=== PATIENT | female | born 1955 | race Caucasian/White ===

== ENCOUNTER 2020-09-20 14:09 | Outpatient (CLI) | payer MEDICARE, SELFPAY ==
--- NOTE | ~2020-09-20 | CT_ITS ---
EXAMINATION: CT chest abdomen pelvis w con DATE: 09/20/2020 14:55 INDICATION: Unintentional weight loss TECHNIQUE: Transaxial computed tomographic images of the chest, abdomen, and pelvis were obtained aft er the administration of 100 cc of Omnipaque 350 intravenous contrast. The dose-length product (DLP) was 360.88 mGy-cm. Automated exposure control and iterative reconstruction technique were employed. COMPARISON: 01/12/2018 FINDINGS: CHEST CT: The lungs are free of acute opacities. There is no pleural effusion or pneumothorax. No pathologicall y enlarged thoracic lymph nodes are identified. The heart size is normal. Calcified coronary artery a therosclerosis is noted. There is a 7 mm nodule of the right thyroid lobe. Healed left-sided rib frac tures are noted. ABDOMEN/PELVIS CT: The liver, spleen, pancreas, gallbladder, and adrenal glands are normal. Cysts of the kidneys measure up to 1.9 cm on the right. No pathologically enlarged abdominal or pelvic lymph nodes are identified . There is no free intraperitoneal gas or evidence of bowel obstruction. There is moderate wall thick ening of the sigmoid colon. Colonic diverticulosis is present without evidence of diverticulitis. The re is severe lumbar spondylosis. IMPRESSION: 1. Wall thickening of the sigmoid colon which could reflect colitis. No definite correlate identified for weight loss. Reviewed, dictated and finalized at location A. ER OF THE LEGISLATIVE [employer]BL[employer] IMPRESSION: 1. Wall thickening of the sigmoid colon which could reflect colitis. No definit e correlate identified for weight loss.
[2020-09-20 14:49] LABS: Estimated Glomerular Filt Rate 41
== END 2020-09-20 14:10 | disposition home or self-care (01) ==
PROVIDERS: PCP Internal Medicine; Visit Provider Physician Assistant
DX: R63.4 Abnormal weight loss (principal)
CPT/HCPCS: 71260; 74177; Q9967

== ENCOUNTER 2020-09-28 14:06 | Outpatient (CLI) | payer MEDICARE, SELFPAY ==
--- NOTE | ~2020-09-28 | US_ITS ---
US thyroid INDICATION: Nontoxic thyroid goiter TECHNIQUE: Real-time sonographic images of the thyroid gland were obtained. COMPARISON: No prior studies for comparison. FINDINGS: The right thyroid lobe measures 3.7 x 1.9 x 1.4 cm. The left thyroid lobe measures 3.7 x 1 .5 x 1 cm. There is normal echotexture and echogenicity throughout the thyroid gland. In the right lo be there is a 1.2 cm cyst which is anechoic, wider than tall, smoothly marginated well without rn internship al calcifications, benign. No other discrete masses are identified. Normal vascular flow is present. IMPRESSION: 1. Benign right thyroid cyst measuring 1.2 x 1 x 0.6 cm. Reviewed, dictated and finalized at location A. ING SAW OPERATOR
== END 2020-09-28 14:07 | disposition home or self-care (01) ==
PROVIDERS: PCP Internal Medicine; Visit Provider Physician Assistant
DX: E04.1 Nontoxic single thyroid nodule (principal)
CPT/HCPCS: 76536

== ENCOUNTER 2020-10-06 09:24 | Outpatient (CLI) | payer MEDICARE, SELFPAY ==
--- NOTE | ~2020-10-06 | NM_ITS ---
EXAMINATION: NM parathyroid imaging w spect DATE: 10/06/2020 13:39 INDICATION: Endocrine disorder. Unspecified elevated calcium levels. TECHNIQUE: 20.46 mCi Tc99m sestamibi (Cardiolite) was administered by intravenous route. Anterior ibis ges of the neck were obtained at 10 minutes and 2 hours. Additional delayed SPECT images were also ob tained. COMPARISON: None. FINDINGS IMPRESSION: Normal study. No no focus of persistent activity in the area of the thyroid or mediastinum to suggest parathyroid adenoma. Reviewed, dictated and finalized at location B.
== END 2020-10-06 09:25 | disposition home or self-care (01) ==
PROVIDERS: PCP Internal Medicine; Visit Provider Physician Assistant
DX: E34.9 Endocrine disorder, unspecified (principal)
CPT/HCPCS: 78071; A9500

== ENCOUNTER 2021-09-17 17:16 | Inpatient (IN) | payer OTHER, MEDICARE, SELFPAY ==
--- NOTE | ~2021-09-17 | CT_ITS ---
EXAMINATION: CT hip RT wo con DATE: 09/17/2021 19:52 INDICATION: Right hip fracture TECHNIQUE: Computed tomography (CT) of the right hip was performed without intravenous contrast. The dose-length product (DLP) was 244.84 mGy-cm. Automated exposure control and iterative reconstruction technique were employed. COMPARISON: None FINDINGS: There is a comminuted intertrochanteric fracture right femur. Mild osteoarthritis is noted in the right hip. No additional fracture is identified. Colonic diverticulosis is present without lg dence of diverticulitis. IMPRESSION: 1. Comminuted intertrochanteric fracture of the right femur. Reviewed, dictated and finalized at location F. UE BRUSHER
--- NOTE | ~2021-09-17 | XR_ITS ---
EXAMINATION: XR hip RT 2V w AP pelvis INDICATION: Right hip pain, initial encounter TECHNIQUE: AP view the pelvis and two views of the right hip are obtained. COMPARISON: None available FINDINGS: There is an acute fracture of the proximal femur which appears to be intertrochanteric in l ocation. The femoral heads are well-seated in their acetabula. No additional fracture is identified. Phleboliths are noted in the pelvis. There is calcified atherosclerosis. IMPRESSION: 1. Right proximal femur fracture, likely intertrochanteric. Reviewed, dictated and finalized at location F. E PICKER
--- NOTE | ~2021-09-17 | XR_ITS ---
EXAMINATION: XR surgery orthopedic INDICATION: Comminuted intertrochanteric fracture of the right hip TECHNIQUE: Total fluoroscopic time was 61.9 seconds. Six fluoroscopic images are submitted for review . COMPARISON: None available FINDINGS: Fluoroscopic images demonstrate antegrade intramedullary jose and interlocking intratrochant carolyn screw fixation of the right femur. A comminuted intertrochanteric fracture of the right femur i s noted. Alignment is anatomic after orthopedic fixation. IMPRESSION: 1. Open reduction and internal fixation of a comminuted intertrochanteric fracture of the right femur . Reviewed, dictated and finalized at location F. RONMENTAL SERVICES AIDE IMPRESSION: 1. Open reduction and internal fixation of a comminuted intertrochanteric fract ure of the right femur.
[2021-09-17 17:20] VITALS: BP 150/104; PULSE 68; RESP 20; TEMP 36.4; O2SAT 100
--- NOTE | 2021-09-17 17:41 | ED.FALL ---
HPI - Fall General Chief Complaint: Fall <Marly Quijano APRN - Last Filed: 09/17/21 22:28> Stated Complaint: R hip pain s/p fall <Marly Quijano APRN - Last Filed: 09/17/21 22:28> Time Seen by Provider: 09/17/21 17:29 <Marly Quijano APRN - Last Filed: 09/17/21 22:28> Source: patient <Marly Quijano APRN - Last Filed: 09/17/21 22:28> Mode of arrival: ambulatory <Marly Quijano APRN - Last Filed: 09/17/21 22:28> Limitations: no limitations <Marly Quijano APRN - Last Filed: 09/17/21 22:28> History of Present Illness HPI Narrative: 66-year-old female was out helping her neighbor today when she fell. Patient arrived via EMS with complaints of right hip right upper leg pain. Patient was given fentanyl in route. Patient says the fentanyl took the edge off the pain but she still in a tremendous amount of pain. Patient unable to extend the leg. Patient with palpable pedal pulse. Patient denies any injuries to the right hip or right upper leg in the past. <Marly Quijano APRN - Last Filed: 09/17/21 22:28> Related Data Home Medications: Home Medications Medication Instructions Recorded Confirmed atorvastatin 40 mg PO HS 09/17/21 09/17/21 carvedilol 12.5 mg PO BID 09/17/21 09/17/21 levothyroxine 50 mcg PO DAILY 09/17/21 09/17/21 melatonin 3 mg PO HS PRN 09/17/21 09/17/21 pantoprazole 40 mg PO BID 09/17/21 09/17/21 venlafaxine 150 mg PO DAILY 09/17/21 09/17/21 <Mraly Quijano APRN - Last Filed: 09/17/21 22:28> Allergies/Adverse Reactions: Allergies Allergy/AdvReac Type Severity Reaction Status Date / Time No Known Allergies Allergy Verified 09/17/21 22:39 <Marly Quijano APRN - Last Filed: 09/17/21 22:28> Review of Systems Review of Systems: CONSTITUTIONAL: Denies fever, chills, or sweats. EYES: Denies visual changes, redness, or discharge. ENT: Denies rhinorrhea, congestion, sore throat, or otalgia. CARDIOVASCULAR: Denies chest pain, palpitations, or edema. RESPIRATORY: Denies cough or dyspnea. GASTROINTESTINAL: Denies abdominal pain, nausea, vomiting, or diarrhea. GENITOURINARY: Denies dysuria or hematuria. SKIN: Denies rash or itching. MUSCULOSKELETAL: Positive for right hip/right upper leg pain. Denies back pain or myalgia. NEUROLOGIC: Denies headache, numbness, dizziness, or weakness. PSYCHIATRIC: Denies anxiety or depression. <Marly Quijano STOCK RECEIVER - Last Filed: 09/17/21 22:28> [facility] Past Medical History Medical History: Medical History (Updated 09/18/21 @ 01:27 by Anita Pedraza DO) Alcoholism Depression Essential hypertension GERD (gastroesophageal reflux disease) Hyperlipidemia Hypothyroidism <Marly Quijano STOCK RECEIVER - Last Filed: 09/17/21 22:28> Surgical History Surgical History: Surgical History (Updated 09/18/21 @ 01:27 by Anita Pedraza DO) History of arthroscopic knee surgery Bilateral History of section X2 History of rhinoplasty History of sinus surgery Status post cataract extraction of both eyes with insertion of intraocular lens Status post open reduction with internal fixation of fracture Right ankle fracture <Marly Quijano STOCK RECEIVER - Last Filed: 09/17/21 22:28> Family History Family History: Family History (Updated 09/18/21 @ 01:29 by Anita Pedraza DO) Mother , at 90 years old CHF (congestive heart failure) Father , At 86 years old Dementia <Marly uQijano STOCK RECEIVER - Last Filed: 09/17/21 22:28> Social History Social History: Social History (Updated 09/18/21 @ 01:30 by Anita Pedraza DO) Social History: The patient lives at home with her of 30 years. Both she and her are alcoholics. She reports that she has cut down on her alcohol use to 1 shot every couple of days. Prior to that she was drinking about a 5th of alcohol a day. She does continue to smoke. She started smoking at the age of 29 and a smoked as much as a pack of cigarette
[2021-09-17] MEDS: fentaNYL CITRATE INJ (*CRX) 100 MCG/2 ML VIAL 50 MCG IV PUSH ×2 (18:02→19:31)
[2021-09-17 18:23] LABS: Basophils Absolute Auto 0.1 K/mm3 (0.0-0.1); Basophils Percent Auto 0.5 % (0.2-1.2); Eosinophils Absolute Auto 0.6 K/mm3 (0-0.3); Eosinophils Percent Auto 5.3 % (0-4.4); Hematocrit 40.5 % (37.0-47.0); Immature Granulocyte Absolute 0.03 K/mm3 (0.00-0.031); Immature Granulocyte Percent A 0.3 % (0-0.5); Lymphocytes Absolute Auto 2.51 K/mm3 (0.9-3.2); Lymphocytes Percent Auto 23.8 % (18.3-44.2); Mean Corpuscular HGB Conc 32.1 g/dl (32-36); Mean Corpuscular Hemoglobin 31.5 pg (26-34); Mean Corpuscular Volume 98.1 fl (80-100); Mean Platelet Volume 9.6 fl (7.4-10.4); Monocytes Absolute Auto 0.8 K/mm3 (0.1-0.6); Monocytes Percent Auto 7.9 % (2.6-8.5); Neutrophils Absolute Auto 6.6 K/mm3 (1.3-6.7); Neutrophils Percent Auto 62.2 % (45.5-73.1); Platelet Count Result 428 k/mm3 (150-375); Red Blood Count 4.13 M/mm3 (4.2-5.4); Red Cell Distribution Width 14.6 % (11.5-14.5); White Blood Count 10.5 K/mm3 (4.5-10.0)
--- NOTE | 2021-09-17 18:30 | PC.NURSE ---
Marly [facility] NURSE PRACTITIONER notified of patients pain level of 10. new orders received.
[2021-09-17 18:32] LABS: Prothrombin Time 12.5 Seconds (11.1-14.7)
[2021-09-17 18:33] LABS: Partial Thromboplastin Time 25.4 SECONDS (22.3-36.8)
[2021-09-17] MEDS: HYDROmorphone HCL INJ (*CRX) 1 MG/ML SYR IV PUSH ×2 (18:33→21:12)
[2021-09-17 18:34] LABS: Alanine Aminotransferase 14 U/L (4-35); Albumin Level 3.8 g/dL (3.5-5.1); Alkaline Phosphatase 140 U/L (38-126); Anion Gap 5 mmol/L (8-16); Aspartate Amino Transferase 26 U/L (14-36); Bilirubin,Total 0.3 mg/dL (0.2-1.3); Blood Urea Nitrogen 11 mg/dL (7-17); Calcium 8.7 mg/dL (8.4-10.2); Carbon Dioxide 27 mmol/L (22-30); Chloride 109 mmol/L (98-107); Estimated CRCL calculation 54 ml/min; Estimated Glomerular Filt Rate > 60; Glucose 97 mg/dL (65-110); Potassium 4.2 mmol/L (3.4-5.0); Sodium 141 mmol/L (137-145)
--- NOTE | 2021-09-17 18:40 | ECG_ITS ---
Measurements Intervals [place] Rate: 69 P: 65 ME: 134 QRS: 58 QRSD: 94 T: 57 QT: 403 QTc: 434 Interpretive Statements SINUS RHYTHM BASELINE ARTIFACT- I, II, III, AVR, AVL, AVF, V4-V6 NORMAL ECG Electronically Signed On 09-17-2021 19:06:07 EXECUTIVE ACCOUNT MANAGER by Richard Davis D.O.
[2021-09-17 18:58] VITALS: BP 142/104; PULSE 71; RESP 15; O2SAT 100
--- NOTE | 2021-09-17 19:22 | PC.NURSE ---
Patient report received from CHAS Colon. This nurse assumed care of patient at this time.
--- NOTE | 2021-09-17 19:40 | PC.NURSE ---
Patient in CT at this time.
[2021-09-17 20:00] VITALS: TEMP 36.4
[2021-09-17 21:14] VITALS: BP 139/86; PULSE 92; RESP 24; O2SAT 99
[2021-09-17 22:05] VITALS: BP 136/75; PULSE 82; RESP 20; O2SAT 98
--- NOTE | 2021-09-17 22:27 | PM.IMHP ---
H&P: HPI History of Present Illness Date/Time: 09/17/21 22:27 Chief Complaint: Right hip pain after fall Narrative: 66-year-old female with past medical history of hypertension, hyperlipidemia, hypothyroidism and GERD who presented to the ER via EMS due to right hip pain after falling. The patient was helping her neighbor shovel snow when she fell. Her pain is worse with movement and she is unable to move her leg. She is having severe pain with muscle spasms with shifting in bed. She reports that the pain is an 10/10 intensity with movement is a 4/10 in intensity at rest. The she reports that the fall happened because she slipped. She did not hit her head or lose consciousness. She has had difficulty with some hypotension in the past but she has stated that that is been several months ago and was associated with her heavy alcohol use. She reports that for the last 6 months she has cut down her alcohol use significantly in is only drinking 1 shot every couple of days. She has a longstanding history of alcohol abuse. She still smokes a half a pack of cigarettes per day. She denies any shortness of breath, cough, congestion, palpitations, chest pain, orthopnea, lower extremity swelling or paroxysmal nocturnal dyspnea. She denies a history of COPD. Activity but this is improved since she cut back on her tobacco use. She did have a 20 lb weight loss approximately a year ago. She reports that her weight is stabilized since he has started drinking some supplements and has cut back on her alcohol use. She did have an EGD due to a sensation of globus which demonstrated GERD. The symptoms have resolved since she was started on Protonix. She is vaccinated against COVID-19. Review of Systems Review of Systems: 12 systems were reviewed with pertinent positives and negatives per HPI. Except as documented in the HPI, all other systems were reviewed and are negative. [facility] Past Medical History Medical History (Updated 09/18/21 @ 01:27 by Anita Pedraza DO) Alcoholism Depression Essential hypertension GERD (gastroesophageal reflux disease) Hyperlipidemia Hypothyroidism Surgical History Surgical History (Updated 09/18/21 @ 01:27 by Anita Pedraza DO) History of arthroscopic knee surgery Bilateral History of section X2 History of rhinoplasty History of sinus surgery Status post cataract extraction of both eyes with insertion of intraocular lens Status post open reduction with internal fixation of fracture Right ankle fracture Family History Family History (Updated 09/18/21 @ 01:29 by Anita Pedraza DO) Mother , at 90 years old CHF (congestive heart failure) Father , At 86 years old Dementia Social History Social History (Updated 09/18/21 @ 01:30 by Anita Pedraza DO) Social History: The patient lives at home with her of 30 years. Both she and her are alcoholics. She reports that she has cut down on her alcohol use to 1 shot every couple of days. Prior to that she was drinking about a 5th of alcohol a day. She does continue to smoke. She started smoking at the age of 29 and a smoked as much as a pack of cigarettes per day. She is down to 0.5 packs of cigarettes per day. She uses marijuana frequently. She is retired from [employer] she worked in [employer]. She is independent in activities of daily living. Smoking packs per day: 0.5 Smoking cigarettes per day: 10.0 Years smoked: 30 Smoking pack-years: 15.00 Smoking status: Current every day smoker Tobacco type: cigarettes Alcohol intake: current Drinks per week: 3 Substance use: current Substance use type: marijuana Spiritual care concerns: No Meds Home Medications and Allergies Home Medications Medication Instructions Recorded Confirmed Type atorvastatin 40 mg PO HS 09/17/21 09/17/21 History carvedilol 12.5 mg PO BID 09/17/21 09/17/21 History levothyroxine 50 mcg PO
--- NOTE | 2021-09-17 22:30 | ADMGEN ---
This patient, Faith Benito, was admitted to Medical Room 243-. Patient/family oriented to hospital policies and general routines including ID bracelet, bed and alarms, visiting hours, pain management, procedures, bathroom and other care routines, personal items, smoking policy, room service/diet, and visiting hours. Information on how to activate the Rapid Response Team has been discussed. Patient/Family are encouraged to report perceived risks to care and to ask questions if they do not understand what they are told or what they should do.
--- NOTE | 2021-09-17 22:46 | PM.CNOR ---
Assessment and Plan Assessment and plan (1) Closed comminuted intertrochanteric fracture of femur: Onset Date: 09/17/21 Qualifiers: Encounter type: initial encounter Laterality: right Qualified Code(s): S72.141A - Displaced intertrochanteric fracture of right femur, initial encounter for closed fracture Code(s): S72.143A - Displaced intertrochanteric fracture of unspecified femur, initial encounter for closed fracture Status: Acute Assessment and Plan: New patient evaluation for chief complaint right hip fracture. History, physical exam and radiographs reviewed with the patient.Right hip IT fx. Discussed the condition, nature, etiology and course of natural history with the patient. Treatment options including surgical and nonoperative treatment were reviewed. Risks and benefits of each as well as alternatives reviewed. The patient's questions were answered. Conservative treatment ice, mechanical dvt px, pain control. Desires operative tx.. Discussed nonoperative and operative treatment options with the patient. Risks and benefits of each as well as alternatives were reviewed. All of the patient's questions were answered. The risks of surgery reviewed including but not limited to: Neurovascular damage, wound complication, infection, blood clot, pulmonary embolus, stroke, myocardial infarction, and anesthetic risks up to and including . Continued pain and possible dysfunction were explained. Specific risks of the procedure including later recurrence of deformity. No guarantees were offered. If hardware used, discussed risk of failure/ breakage and possible need for removal. If complications occur, the patient understands the need for further treatment, possible further surgery. Patient verbalizes understanding and wishes to proceed. PLAN: RT hip trochanteric nail History of Present Illness HPI Consult date: 09/17/21 Requesting physician: Marly Quijano APRN Chief complaint: Comminuted intertrochanteric fracture of the right Narrative: 66 yo fell on right hip. RT hip pain. XR shows right hip fx. Unable to bear weight. No prior problems with hip. Review of Systems Constitutional: Constitutional: Denies fever(s) Eyes: Eyes: Denies blurry vision ENT: Reports Normal hearing present Cardiovascular: Cardiovascular: Denies chest pain and Denies dyspnea Respiratory: Respiratory: Denies dyspnea and Denies wheezing Gastrointestinal: Gastrointestinal: Denies abdominal pain Genitourinary: Genitourinary: Denies urinary urgency Musculoskeletal: Musculoskeletal: Reports as per HPI and Denies numbness Integumentary/Breasts: Skin/Breast: Denies changing lesions and Denies sores Neurologic: Reports Normal hearing present, Denies behavioral changes, Denies confusion, Denies numbness and Denies convulsions Psychiatric: Psychiatric: Denies behavioral changes, Denies confusion and Denies hallucinations Endocrine: Endocrine: Denies heat intolerance Hematologic/Lymphatic: Hematologic/Lymphatic: Denies easy bleeding Allergic/Immunologic: Allergic/Immunologic: Denies wheezing PMFSH Past Medical History Medical History Depression Essential hypertension GERD (gastroesophageal reflux disease) Hyperlipidemia Hypothyroidism Social History Social History Smoking packs per day: 0.5 Smoking cigarettes per day: 10.0 Years smoked: 30 Smoking pack-years: 15.00 Smoking status: Current every day smoker Tobacco type: cigarettes Alcohol intake: current Drinks per week: 3 Substance use: current Substance use type: marijuana Spiritual care concerns: No Meds Home Medications and Allergies Home Medications Medication Instructions Recorded Confirmed Type atorvastatin 40 mg PO HS 09/17/21 09/17/21 History carvedilol 12.5 mg PO BID 09/17/21 09/17/21 History lev
[2021-09-17] MEDS: SODIUM CHLORIDE 0.9% IV 1,000 ML 125 ML IV CONT (23:05)
[2021-09-17 23:16] VITALS: BMI 19.3
[2021-09-17 23:17] VITALS: BP 126/85; PULSE 81; RESP 21; TEMP 36.1; O2SAT 100
[2021-09-18] VITALS (12 sets, daily range): BP systolic 100–123; BP diastolic 70–104; PULSE 69–105; RESP 12–18; TEMP 35.6–36.6; O2SAT 94–100
[2021-09-18] MEDS: diazePAM INJ (*CRX) 10 MG/2 ML SYRINGE 5 MG IV PUSH (00:11)
[2021-09-18] MEDS: HYDROmorphone HCL INJ (*CRX) 1 MG/ML SYR IV PUSH ×3 (02:03→06:40)
[2021-09-18 04:39] LABS: Add Urine Microscopic? YES; Appearance Urine Clear (Clear); Bacteria Urine Trace /hpf; Bilirubin Urine Negative (Negative); Blood Urine Negative (Negative); Color Urine Yellow (Yellow); Glucose Urine UA Negative (Negative); Ketones Urine Trace mg/dL (Negative); Leukocyte Esterase Ur Negative LEU/UL (Negative); Mucus Urine Rare /lpf; Nitrate Urine Negative (Negative); Protein Urine Negative (Negative); Specific Grav Ur 1.016 (1.001-1.035); Squamous Epithelial Cell Urine Occasional /hpf (Few); Urobilinogen Urine Negative mg/dL (<2.0)
[2021-09-18] MEDS: LEVOTHYROXINE SODIUM 50 MCG TABLET PO (06:41)
[2021-09-18] MEDS: SODIUM CHLORIDE 0.9% IV 1,000 ML 125 ML IV CONT (06:44)
--- NOTE | 2021-09-18 07:00 | WPDANESEPP ---
Anes - Eval Pre Procedure Procedure: Operation Date: 09/18/21 07:30 Proposed Procedures p Intertrochanteric Nail(Right) - Efren Allen MD Date/Time: 09/18/21 07:00 Pre Op Diagnosis: Comminuted intertrochanteric fracture of the right Patient Data Age: 66 Gender: F Height: 1.75 m Weight: 59.3 kg Last Vital Signs Temp 36.1 C L 09/18/21 06:00 Pulse 80 09/18/21 06:00 Resp 18 09/18/21 06:00 BP 120/84 09/18/21 06:00 Pulse Ox 97 09/18/21 06:00 Allergies Allergy/AdvReac Type Severity Reaction Status Date / Time No Known Allergies Allergy Verified 09/17/21 22:39 Home Medications Medication Instructions Recorded Confirmed Type atorvastatin 40 mg PO HS 09/17/21 09/17/21 History carvedilol 12.5 mg PO BID 09/17/21 09/17/21 History levothyroxine 50 mcg PO DAILY 09/17/21 09/17/21 History melatonin 3 mg PO HS PRN 09/17/21 09/17/21 History pantoprazole 40 mg PO BID 09/17/21 09/17/21 History venlafaxine 150 mg PO DAILY 09/17/21 09/17/21 History Laboratory Tests 09/17/21 09/17/21 09/17/21 18:11 18:18 18:18 WBC 10.5 K/mm3 H K/mm3 (4.5-10.0) RBC 4.13 M/mm3 L M/mm3 (4.2-5.4) Hgb 13.0 g/dL g/dL (12.0-15.0) Hct 40.5 % % (37.0-47.0) MCV 98.1 fl fl (80-100) MCH 31.5 pg pg (26-34) MCHC 32.1 g/dl g/dl (32-36) RDW 14.6 % H % (11.5-14.5) Plt Count 428 k/mm3 H k/mm3 (150-375) MPV 9.6 fl fl (7.4-10.4) Immature Gran % (Auto) 0.3 % % (0-0.5) Neut % (Auto) 62.2 % % (45.5-73.1) Lymph % (Auto) 23.8 % % (18.3-44.2) [place] % (Auto) 7.9 % % (2.6-8.5) Eos % (Auto) 5.3 % H % (0-4.4) Baso % (Auto) 0.5 % % (0.2-1.2) Lymph # (Auto) 2.51 K/mm3 K/mm3 (0.9-3.2) [place] # (Auto) 0.8 K/mm3 H K/mm3 (0.1-0.6) Eos # (Auto) 0.6 K/mm3 H K/mm3 (0-0.3) Baso # (Auto) 0.1 K/mm3 K/mm3 (0.0-0.1) Abs Immat Gran (auto) 0.03 K/mm3 K/mm3 (0.00-0.031) Absolute Neuts (auto) 6.6 K/mm3 K/mm3 (1.3-6.7) Absolute Nucleated RBC 0.0 K/mm3 K/mm3 (0.0-0.012) Nucleated RBC % 0.0 % % (0.0-0.2) PT 12.5 Seconds Seconds (11.1-14.7) INR 1.0 APTT 25.4 SECONDS SECONDS (22.3-36.8) Sodium Potassium Chloride Carbon Dioxide Anion Gap BUN Creatinine Estim Creat Clear Calc Estimated GFR Glucose Calcium Total Bilirubin AST ALT Alkaline Phosphatase Total Protein Albumin Urine Color Urine Appearance Urine pH Ur Specific [place] Urine Protein Urine Glucose (UA) Urine Ketones Ur Blood (Man) Urine Nitrate Urine Bilirubin Urine Urobilinogen Leukocyte Esterase Rfl Urine RBC Urine WBC Ur Squamous Epith Cells Urine Bacteria Urine Mucus Blood Type O Positive Antibody Screen Negative 09/17/21 09/18/21 18:18 04:28 WBC RBC Hgb Hct MCV MCH MCHC RDW Plt Count MPV Immature Gran % (Auto) Neut % (Auto) Lymph % (Auto) [place] % (Auto) Eos % (Auto) Baso % (Auto) Lymph # (Auto) [place] # (Auto) Eos # (Auto) Baso # (Auto) Abs Immat Gran (auto) Absolute Neuts (auto) Absolute Nucleated RBC Nucleated RBC % PT INR APTT Sodium 141 mmol/L mmol/L (137-145) Potassium 4.2 mmol/L
--- NOTE | 2021-09-18 08:36 | WPDANESEFPP ---
Anes - Eval Final PreProcedure Day of Procedure 09/18/21 08:36 Patient weight: normal Heart: regular rate and rhythm Lungs: clear to auscultation Airway: Mallampati scale class II Neurological: alert and oriented Last oral intake: >/= 8 hours ASA classification: III Emergent: no Anesthetic plan: proceed Anesthesia type and monitoring: general LMA and standard monitoring Results Review: All pre-operative results and documents have been reviewed as part of the pre-operative evaluation. Informed Consent: The patient's anesthetic plan and its attendant risks and benefits were discussed with the patient/family/POA. Questions were solicited and answers provided to the satisfaction of the patient/family/POA.
--- NOTE | 2021-09-18 08:44 | WPDHPUPDATE1 ---
History and Physical Update Update Date/Time: 09/18/21 08:44 History and Physical has been reviewed, including an updated exam of the patient. There are NO changes in the patient's condition. Risks, benefits, and alternatives have been discussed and questions answered. Patient agrees to proceed with procedure.
[2021-09-18] MEDS: ceFAZolin 2 GM/D5W 50 ML 2 GM/50 ML BAG IVPB (08:56)
[2021-09-18] MEDS: TRANEXAMIC ACID 1,000MG/ISO100 1,000 MG/100 ML BAG 200 MG IVPB (08:56)
[2021-09-18] MEDS: BUPIVACAINE HCL 0.5% PF 30 ML VIAL INFILTRATE (09:39)
--- NOTE | 2021-09-18 09:47 | PM.IMPN ---
Progress Note: A&P Assessment and Plan (1) Closed comminuted intertrochanteric fracture of femur: Onset Date: 09/17/21 Qualifiers: Encounter type: initial encounter Laterality: right Qualified Code(s): S72.141A - Displaced intertrochanteric fracture of right femur, initial encounter for closed fracture Code(s): S72.143A - Displaced intertrochanteric fracture of unspecified femur, initial encounter for closed fracture Status: Acute Assessment and Plan: to OR today (2) Alcoholism: Code(s): F10.20 - Alcohol dependence, uncomplicated Status: Acute Assessment and Plan: The patient reports only minimal alcohol use currently. She denies any symptoms of alcohol withdrawal. (3) Tobacco abuse disorder: Code(s): Z72.0 - Tobacco use Status: Acute Assessment and Plan: cessation counseled Subjective Date/time seen: 09/18/21 09:47 no new complaint to OR today Review of Systems Review of Systems: All systems reviewed & are unremarkable except as noted in HPI and below (subjective) Exam Narrative: PHYSICAL EXAM: WEIGHT 64 kg BMI 20.8 General: No acute distress, thin body habitus HEENT: Upper dentures in place, partial in lower jaw, mucous membranes are moist, no oral pharyngeal erythema, pupils are equal and react, trace scleral icterus Respiratory: Clear to auscultation bilaterally, no increased work of breathing Cardiovascular: Regular rate, regular rhythm, 2+ bilateral radial pedal pulses Gastrointestinal: Soft, nontender, nondistended, positive bowel sounds Skin: Generalized pallor, non jaundice Musculoskeletal: No gross bony deformities, pain with any repositioning of the right lower extremity pain is at the hip Neurological: Alert oriented to person and place. She was confused as to the month and thought it was July she thought the year was 2020. She knew the name of the president. Psychiatric: Appropriate mood and affect, pleasant and cooperative, occasionally tearful when discussing her sons substance abuse : Judge catheter in place with clear yellow urine present Hematologic/lymphatic: No anterior cervical or submandibular lymphadenopathy Objective Data Vital Signs Vital Signs: Vital Signs - 24 hr 09/17/21 17:20 09/17/21 18:58 09/17/21 20:00 Temperature 97.5 F L 97.5 F L Pulse Rate 68 71 Respiratory Rate 20 15 Blood Pressure 150/104 H 142/104 H Pulse Oximetry 100 100 09/17/21 21:14 09/17/21 22:05 09/17/21 23:17 Temperature 97.0 F L Pulse Rate 92 82 81 Respiratory Rate 24 H 20 21 H Blood Pressure 139/86 136/75 126/85 Pulse Oximetry 99 98 100 09/18/21 06:00 Temperature 97.0 F L Pulse Rate 80 Respiratory Rate 18 Blood Pressure 120/84 Pulse Oximetry 97 Intake/Output Intake/Output: Intake & Output 09/15/21 09/16/21 09/17/21 09/18/21 23:59 23:59 23:59 23:59 Intake Total 1000 Output Total 400 Balance 600 Meds/Results Medications: Active Medications Generic Name Dose Route Start Last Admin Trade Name Freq PRN Reason Stop Dose Admin Atorvastatin Calcium 40 mg 09/18/21 21:00 Atorvastatin 40 Mg Tablet PO HS DESTINY Carvedilol 12.5 mg 09/18/21 08:00 Carvedilol 12.5 Mg Tablet PO BIDWM DESTINY Fentanyl Citrate 25 mcg 09/18/21 08:37 Fentanyl Citrate Inj (*Crx) 100 Mcg/2 Ml Vial IV PUSH Q2M PRN Pain Hydromorphone HCl 1 mg 09/17/21 23:52 09/18/21 06:40 Hydromorphone Hcl Inj (*Crx) 1 Mg/Ml Syr IV PUSH 1 mg Q2H PRN Administration Pain Rated 7-10 Sodium Chloride 1,000 mls @ 125 mls/hr 09/17/21 20:45 09/18/21 06:44 Normal Saline Iv IV CONT 125 mls/hr .Q8H DESTINY Administration Lactated Ringer's 1,000 mls @ 30 mls/hr 09/18/21 08:40 Lr - Lactated Ringers Iv IV CONT .Q24H DESTINY Lactated Ringer's 1,000 mls @ 30 mls/hr 09/18/21 08:40 Lr - Lactated Ringers Iv IV CONT .Q24H DESTINY Levothyroxine Sodium 50 mcg 09/18/21
[2021-09-18] MEDS: LACTATED RINGERS 1,000 ML 30 ML IV CONT ×2 (10:05→10:35)
--- NOTE | 2021-09-18 10:14 | W.PM.PROC2 ---
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 Patient desires operative treatment. Description of Procedure After informed consent the operative extremity was marked in the preoperative holding area. Patient received intravenous antibiotics. The patient was taken to the operative room, placed in the supine position, general anesthesia induced by the anesthesia team, and was placed on a fracture table with longitudinal traction applied to the right leg. The hip fracture was reduced to near anatomic position and verified with image intensification. A time-out was performed confirming the patient, site of the surgery and plan. The right lower extremity was prepped and draped sterilely from the knee to the iliac crest region using a ChloraPrep skin solution. Incision was made just proximal to greater trochanter down to the subcutaneous tissues. Hemostasis controlled with electrocautery. Blunt dissection through the fascia to the tip of the greater trochanter. A starter awl was placed at the tip of the greater trochanter into the medullary canal of the femur. This was checked with image intensification and was in good position. Intramedullary guide jose positioned. A one-step hand reaming done proximally. Intramedullary canal was reamed with a 12.5 millimeter flexible reamer. Neck angle selected off of preoperative radiographs temp plating. 125 degree 11.5mm X 21.5cm Nail opened on the back table and assembled. This was then inserted over the guide jose to the correct depth. Guide jose removed. Lag screw was then placed with a stab incision over the lateral femur using a 10 blade knife. Blunt dissection down to the lateral side of the bone. Soft tissue protectors placed. Guide pin placed in the center center position of the femoral head and measured. 95 millimeter x 10.5 millimeter lag screw placed to correct depth and verified with image intensification. Traction released from the leg and compression of the fracture performed with the external compression device. Proximal locking screw placed. Distal locking of the nail then performed. Stab incision made lateral distal thigh. Blunt dissection down lateral side of the femur. Soft tissue protector placed. Femur drilled from lateral to medial through the distal nail. Distal femur measured and the appropriate size screw placed. 35 mm screw used. Image intensification confirmed the placement through the locking hole. Final image intensification confirmed reduction of the fracture and placement of the hardware. Wounds then thoroughly irrigated with antibiotic solution. Fascia repaired with 0 Vicryl interrupted suture. Subcutaneous tissue repaired with 000 Monocryl interrupted suture and skin repaired with adhesive. Sterile dressings applied. Patient then awoke from anesthesia, extubated, taken to recovery room stable condition. All sponge, needle and instrument counts correct at the end the case. [employer] Troch nail 125 degree, 11.5 millimeter diameter, 21.5 centimeter length nail, lag screw 10.5 millimeter x 95millimeter, 35 mm distal locking screw Estimated Blood Loss 50 Drains No Packing No Pathology none sent Complications None Condition stable Disposition PACU
[2021-09-18] MEDS: fentaNYL CITRATE INJ (*CRX) 100 MCG/2 ML VIAL 25 MCG IV PUSH ×4 (10:33→10:47)
[2021-09-18] MEDS: SODIUM CHLORIDE 0.9% IV 1,000 ML 80 ML IV CONT (12:07)
[2021-09-18] MEDS: IBUPROFEN IV 800 MG/200 ML 800 MG/200 ML BAG 400 MG IVPB ×2 (12:08→17:56)
[2021-09-18] MEDS: ONDANSETRON INJ 4 MG/2 ML VIAL IV PUSH (12:15)
--- NOTE | 2021-09-18 14:51 | PCOTNOTE ---
OT to evaluate patient on 09/19/21; postop day 2 as able.
[2021-09-18] MEDS: VENLAFAXINE HCL XR 75 MG CAP.ER.24H 150 MG PO (14:58)
[2021-09-18] MEDS: diazePAM (*CRX) 5 MG TABLET PO ×2 (14:59→22:59)
[2021-09-18] MEDS: HYDROcodone/acetaminophen (*CRX) 7.5-325 MG TABLET 2 TAB PO (14:59)
[2021-09-18] MEDS: PANTOPRAZOLE 40 MG TABLET PO (16:25)
[2021-09-18] MEDS: SENNA/DOCUSATE SODIUM TABLET 2 TAB PO (16:25)
[2021-09-18] MEDS: carvediloL 12.5 MG TABLET PO (16:25)
[2021-09-18] MEDS: FAMOTIDINE 20 MG TABLET PO (20:14)
[2021-09-18] MEDS: ATORVASTATIN 40 MG TABLET PO (20:14)
[2021-09-18] MEDS: IBUPROFEN IV 800 MG/200 ML 800 MG/200 ML BAG 200 MG IVPB (23:00)
[2021-09-19] MEDS: SODIUM CHLORIDE 0.9% IV 1,000 ML 80 ML IV CONT ×2 (01:15→14:26)
[2021-09-19 03:19] VITALS: BP 103/65; PULSE 87; RESP 16; TEMP 36.2; O2SAT 99
[2021-09-19 05:29] LABS: Hemoglobin 9.5 g/dL (12.0-15.0); Mean Corpuscular HGB Conc 31.7 g/dl (32-36); Mean Corpuscular Hemoglobin 31.9 pg (26-34); Mean Corpuscular Volume 100.7 fl (80-100); Mean Platelet Volume 9.8 fl (7.4-10.4); Platelet Count Result 304 k/mm3 (150-375); Red Blood Count 2.98 M/mm3 (4.2-5.4); Red Cell Distribution Width 14.6 % (11.5-14.5); White Blood Count 11.6 K/mm3 (4.5-10.0)
[2021-09-19] MEDS: LEVOTHYROXINE SODIUM 50 MCG TABLET PO (05:38)
[2021-09-19] MEDS: IBUPROFEN IV 800 MG/200 ML 800 MG/200 ML BAG 200 MG IVPB (05:38)
[2021-09-19 05:41] LABS: Anion Gap 1 mmol/L (8-16); Blood Urea Nitrogen 11 mg/dL (7-17); Carbon Dioxide 29 mmol/L (22-30); Chloride 109 mmol/L (98-107); Estimated CRCL calculation 50 ml/min; Estimated Glomerular Filt Rate > 60; Glucose 101 mg/dL (65-110); Potassium 4.1 mmol/L (3.4-5.0); Sodium 139 mmol/L (137-145)
[2021-09-19 08:12] VITALS: O2SAT 97
[2021-09-19] MEDS: SENNA/DOCUSATE SODIUM TABLET 2 TAB PO ×2 (09:07→16:22)
[2021-09-19] MEDS: FAMOTIDINE 20 MG TABLET PO ×2 (09:13→20:07)
[2021-09-19] MEDS: VENLAFAXINE HCL XR 75 MG CAP.ER.24H 150 MG PO (09:13)
[2021-09-19 09:14] VITALS: PULSE 87
[2021-09-19] MEDS: PANTOPRAZOLE 40 MG TABLET PO ×2 (09:14→16:21)
[2021-09-19] MEDS: polyethylene glycoL 3350 17 GM POWD.PACK PO (09:14)
[2021-09-19] MEDS: carvediloL 12.5 MG TABLET PO ×2 (09:14→16:22)
[2021-09-19] MEDS: HYDROcodone/acetaminophen (*CRX) 7.5-325 MG TABLET 2 TAB PO (09:30)
--- NOTE | 2021-09-19 09:44 | PM.IMPN ---
Progress Note: A&P Assessment and Plan (1) History of sinus surgery: Code(s): Z98.890 - Other specified postprocedural states (2) Hypothyroidism: Qualifiers: Hypothyroidism type: unspecified Qualified Code(s): E03.9 - Hypothyroidism, unspecified Code(s): E03.9 - Hypothyroidism, unspecified Status: Acute Assessment and Plan: History of (3) Closed comminuted intertrochanteric fracture of femur: Onset Date: 09/17/21 Qualifiers: Encounter type: initial encounter Laterality: right Qualified Code(s): S72.141A - Displaced intertrochanteric fracture of right femur, initial encounter for closed fracture Code(s): S72.143A - Displaced intertrochanteric fracture of unspecified femur, initial encounter for closed fracture Status: Acute Assessment and Plan: Continue PT/OT. Patient will likely be discharged tomorrow. Likely home health will be needed (4) Alcoholism: Code(s): F10.20 - Alcohol dependence, uncomplicated Status: Acute Subjective Date/time seen: 09/19/21 09:44 Doing well, no new complaints. Has some mild hip pain with activity but otherwise doing okay with therapy. Review of Systems Review of Systems: All systems reviewed & are unremarkable except as noted in HPI and below (subjective) Exam Narrative: PHYSICAL EXAM: WEIGHT 64 kg BMI 20.8 General: No acute distress, thin body habitus HEENT: Upper dentures in place, partial in lower jaw, mucous membranes are moist, no oral pharyngeal erythema, pupils are equal and react, trace scleral icterus Respiratory: Clear to auscultation bilaterally, no increased work of breathing Cardiovascular: Regular rate, regular rhythm, 2+ bilateral radial pedal pulses Gastrointestinal: Soft, nontender, nondistended, positive bowel sounds Skin: Generalized pallor, non jaundice Musculoskeletal: No gross bony deformities, pain with any repositioning of the right lower extremity pain is at the hip Neurological: Alert oriented to person and place. She was confused as to the month and thought it was July she thought the year was 2020. She knew the name of the president. Psychiatric: Appropriate mood and affect, pleasant and cooperative, occasionally tearful when discussing her sons substance abuse : Judge catheter in place with clear yellow urine present Hematologic/lymphatic: No anterior cervical or submandibular lymphadenopathy Objective Data Vital Signs Vital Signs: Vital Signs - 24 hr 09/18/21 10:05 09/18/21 10:20 09/18/21 10:35 Temperature 97.4 F L Pulse Rate 82 91 101 H Respiratory Rate 12 12 14 Blood Pressure 123/96 H 121/104 H 108/91 H Pulse Oximetry 100 100 100 09/18/21 10:45 09/18/21 10:50 09/18/21 11:05 Temperature Pulse Rate 95 105 H Respiratory Rate 14 14 Blood Pressure 114/91 H 121/79 Pulse Oximetry 100 100 94 09/18/21 11:14 09/18/21 11:43 09/18/21 12:57 Temperature 96.2 F L 96.8 F L 96.0 F L Pulse Rate 98 97 91 Respiratory Rate 13 14 16 Blood Pressure 114/88 100/70 121/76 Pulse Oximetry 100 100 100 09/18/21 15:44 09/18/21 19:25 09/19/21 03:19 Temperature 97.2 F L 97.9 F 97.2 F L Pulse Rate 98 69 87 Respiratory Rate 16 17 16 Blood Pressure 109/76 110/79 103/65 Pulse Oximetry 100 100 99 09/19/21 08:12 09/19/21 09:14 Temperature Pulse Rate 87 Respiratory Rate Blood Pressure Pulse Oximetry 97 Intake/Output Intake/Output: Intake & Output 09/16/21 09/17/21 09/18/21 09/19/21 23:59 23:59 23:59 23:59 Intake Total 2014 1709 Output Total 800 200 Balance 1215 1510 Meds/Results Medications: Active Medications Generic Name Dose Route Start Last Admin Trade Name Kira PRN Reason Stop Dose Admin Acetaminophen 650 mg 09/18/21 11:14 Acetaminophen 325 Mg Tablet PO Q6H PRN Mild Pain (1-3) or Fever Hydrocodone Bitart/Acetaminophen 2 tab 09/18/21 11:14 09/19/21 09:30 Hydrocodone/Acetaminophen (*Crx) 7.5-
--- NOTE | 2021-09-19 09:46 | PM.PNORT ---
Progress Note: A&P Assessment and Plan (1) Closed comminuted intertrochanteric fracture of femur: Onset Date: 09/17/21 Qualifiers: Encounter type: initial encounter Laterality: right Qualified Code(s): S72.141A - Displaced intertrochanteric fracture of right femur, initial encounter for closed fracture Code(s): S72.143A - Displaced intertrochanteric fracture of unspecified femur, initial encounter for closed fracture Status: Acute Assessment and Plan: POD #1: Right hip trochanteric nail Continue PT/OT. WBAT. Walker. HIGH FALL RISK. Monitor dressing. Change to mepilex silver dressing. DVT prophylaxis. SCDs. Incentive Spirometry. Pain control. Ice. Discontinue carbajal catheter. Void trial. Dispo: Home with Home Health pending progress with PT/OT and medical clearance. Follow up in 6 weeks in outpatient ortho clinic. (2) Alcoholism: Code(s): F10.20 - Alcohol dependence, uncomplicated Status: Acute (3) Tobacco abuse disorder: Code(s): Z72.0 - Tobacco use Status: Acute Subjective Subjective Date/Time Seen: 09/19/21 09:46 Interval history: POD #1: Right hip trochanteric nail Mild lateral sided hip pain. No new concerns. Review of Systems Constitutional: Constitutional: Denies fatigue, Denies fever(s) and Denies weakness Cardiovascular: Cardiovascular: Denies chest pain, Denies lightheadedness and Denies palpitations Respiratory: Respiratory: Denies dyspnea Gastrointestinal: Gastrointestinal: Reports no additional gastrointestinal complaints Genitourinary: Genitourinary: Reports no additional female genitourinary complaints Musculoskeletal: Musculoskeletal: Reports as per HPI Exam Const: General: comfortable and no acute distress Resp: Effort & Inspection: normal respiratory effort Cardio: Rate: regular rate Rhythm: regular rhythm GI: Inspection: non-distended GI Palp: Yes Soft to palpation and No Tenderness to palpation present (GI) Urinary Catheter: Urinary Catheter: patent and draining Skin: General skin exam: normal color Neuro: Cognition (Neuro): normal cognition Extrem: Right lower extremity: hip/thigh Details: tenderness Location: of the hip Location: laterally, swelling Location: at the hip (lateral ) and abnormal ROM (limited due to recent fracture/surgery); no foreign bodies, no deformity and no unusual warmth, knee Details: normal to inspection and normal ROM; no tenderness and no swelling, lower leg (Negative Clarissa's sign ) Details: normal to inspection; no tenderness, ankle (+ankle dorsiflexion/plantarflexion ) Details: normal to inspection and no edema; no tenderness and no swelling and foot (NV intact. Sensation intact. ) Details: normal capillary refill and abnormal to inspection Objective Data Vital Signs Vital Signs: Vital Signs - 24 hr 09/18/21 10:05 09/18/21 10:20 09/18/21 10:35 Temperature 36.3 C L Pulse Rate 82 91 101 H Respiratory Rate 12 12 14 Blood Pressure 123/96 H 121/104 H 108/91 H Pulse Oximetry 100 100 100 09/18/21 10:45 09/18/21 10:50 09/18/21 11:05 Temperature Pulse Rate 95 105 H Respiratory Rate 14 14 Blood Pressure 114/91 H 121/79 Pulse Oximetry 100 100 94 09/18/21 11:14 09/18/21 11:43 09/18/21 12:57 Temperature 35.7 C L 36.0 C L 35.6 C L Pulse Rate 98 97 91 Respiratory Rate 13 14 16 Blood Pressure 114/88 100/70 121/76 Pulse Oximetry 100 100 100 09/18/21 15:44 09/18/21 19:25 09/19/21 03:19 Temperature 36.2 C L 36.6 C 36.2 C L Pulse Rate 98 69 87 Respiratory Rate 16 17 16 Blood Pressure 109/76 110/79 103/65 Pulse Oximetry 100 100 99 09/19/21 08:12 09/19/21 09:14 Temperature Pulse Rate 87 Respiratory Rate Blood Pressure Pulse Oximetry 97 Intake/Output Intake/Output: Intake & Output 09/16/21 09/17/21 09/18/21 09/19/21 23:59 23:59 23:59 23:59 Intake Total 2014 1709 Output Total 800 200 Balance 1215 1510 Meds/Results Medications
[2021-09-19 11:10] VITALS: BMI 19.3
--- NOTE | 2021-09-19 12:11 | WPDANESPN ---
Anes - Prog Note Post-Op Date/Time: 09/19/21 12:11 Cardiovascular status: normal Respiratory status: normal Airway patency: baseline Mental status: baseline Post-Op hydration status: normal Vital Signs: Last Vital Signs Temp 36.2 C L 09/19/21 03:19 Pulse 87 09/19/21 09:14 Resp 16 09/19/21 03:19 BP 103/65 09/19/21 03:19 Pulse Ox 97 09/19/21 08:12 Pain Score (VAS): 0 I/O: Intake & Output 09/18/21 09/19/21 09/19/21 23:59 07:59 15:59 Intake Total 610 1470 240 Output Total 400 200 Balance 210 1270 240 Laboratory Tests 09/19/21 04:47 09/19/21 04:47 09/19/21 09/19/21 04:47 04:47 WBC 11.6 H RBC 2.98 L Hgb 9.5 L D Hct 30.0 L MCV 100.7 H MCH 31.9 MCHC 31.7 L RDW 14.6 H Plt Count 304 MPV 9.8 Sodium 139 Potassium 4.1 Chloride 109 H Carbon Dioxide 29 Anion Gap 1 L BUN 11 Creatinine 0.90 Estim Creat Clear Calc 50 Estimated GFR > 60 Glucose 101 Calcium 8.0 L Post-procedural complaints: none Patient Feedback: Patient satisfied with anesthetic care.
[2021-09-19 14:16] VITALS: BP 167/87; PULSE 81; RESP 16; TEMP 36.5; O2SAT 100
[2021-09-19] MEDS: diazePAM (*CRX) 5 MG TABLET PO (14:53)
[2021-09-19] MEDS: HYDROmorphone HCL INJ (*CRX) 1 MG/ML SYR IV PUSH (16:11)
[2021-09-19] MEDS: RIVAROXABAN 10 MG TABLET PO (16:21)
[2021-09-19 16:22] VITALS: PULSE 81
[2021-09-19] MEDS: oxyCODONE/ACETAMINOPHEN (*CRX) 5-325 MG TABLET PO (18:05)
[2021-09-19 19:55] VITALS: BP 112/68; PULSE 90; RESP 20; TEMP 35.6; O2SAT 95
[2021-09-19] MEDS: ATORVASTATIN 40 MG TABLET PO (20:07)
[2021-09-20] MEDS: SODIUM CHLORIDE 0.9% IV 1,000 ML 80 ML IV CONT (03:03)
[2021-09-20 04:36] VITALS: BP 117/81; PULSE 83; RESP 18; TEMP 36.6; O2SAT 94
[2021-09-20] MEDS: LEVOTHYROXINE SODIUM 50 MCG TABLET PO (05:43)
[2021-09-20] MEDS: ACETAMINOPHEN 325 MG TABLET 650 MG PO (05:45)
[2021-09-20] MEDS: oxyCODONE/ACETAMINOPHEN (*CRX) 5-325 MG TABLET PO ×2 (07:47→12:01)
[2021-09-20] MEDS: polyethylene glycoL 3350 17 GM POWD.PACK PO (08:39)
[2021-09-20] MEDS: FAMOTIDINE 20 MG TABLET PO (08:39)
[2021-09-20] MEDS: SENNA/DOCUSATE SODIUM TABLET 2 TAB PO (08:39)
[2021-09-20] MEDS: carvediloL 12.5 MG TABLET PO (08:39)
[2021-09-20] MEDS: VENLAFAXINE HCL XR 75 MG CAP.ER.24H 150 MG PO (08:39)
--- NOTE | 2021-09-20 10:10 | PM.PNORT ---
Progress Note: A&P Assessment and Plan (1) Closed comminuted intertrochanteric fracture of femur: Onset Date: 09/17/21 Qualifiers: Encounter type: initial encounter Laterality: right Qualified Code(s): S72.141A - Displaced intertrochanteric fracture of right femur, initial encounter for closed fracture Code(s): S72.143A - Displaced intertrochanteric fracture of unspecified femur, initial encounter for closed fracture Status: Acute Assessment and Plan: POD #2: Right hip trochanteric nail Continue PT/OT. WBAT. Walker. HIGH FALL RISK. Monitor dressing. Change to mepilex silver dressing, nursing notified. DVT prophylaxis. SCDs. Incentive Spirometry. Pain control. Ice. Dispo: Home with Home Health pending progress with PT/OT and medical clearance. Follow up in 6 weeks in outpatient ortho clinic. (2) Alcoholism: Code(s): F10.20 - Alcohol dependence, uncomplicated Status: Acute (3) Tobacco abuse disorder: Code(s): Z72.0 - Tobacco use Status: Acute Subjective Subjective Date/Time Seen: 09/20/21 10:10 Interval history: POD #2: Right hip trochanteric nail Mild lateral sided hip pain. Some nausea. No vomiting. No new concerns. Review of Systems Constitutional: Constitutional: Denies fatigue, Denies fever(s) and Denies weakness Cardiovascular: Cardiovascular: Denies chest pain, Denies lightheadedness and Denies palpitations Respiratory: Respiratory: Denies dyspnea Gastrointestinal: Gastrointestinal: Reports no additional gastrointestinal complaints Genitourinary: Genitourinary: Reports no additional female genitourinary complaints Musculoskeletal: Musculoskeletal: Reports as per HPI Exam Const: General: comfortable and no acute distress Resp: Effort & Inspection: normal respiratory effort Cardio: Rate: regular rate Rhythm: regular rhythm GI: Inspection: non-distended GI Palp: Yes Soft to palpation and No Tenderness to palpation present (GI) Urinary Catheter: Urinary Catheter: patent and draining Skin: General skin exam: normal color Neuro: Cognition (Neuro): normal cognition Extrem: Right lower extremity: hip/thigh Details: tenderness Location: of the hip Location: laterally, swelling Location: at the hip (lateral ) and abnormal ROM (limited due to recent fracture/surgery); no foreign bodies, no deformity and no unusual warmth, knee Details: normal to inspection and normal ROM; no tenderness and no swelling, lower leg (Negative Clarissa's sign ) Details: normal to inspection; no tenderness, ankle (+ankle dorsiflexion/plantarflexion ) Details: normal to inspection and no edema; no tenderness and no swelling and foot (NV intact. Sensation intact. ) Details: normal capillary refill and abnormal to inspection Objective Data Vital Signs Vital Signs: Vital Signs - 24 hr 09/19/21 14:16 09/19/21 16:22 09/19/21 19:55 Temperature 36.5 C 35.6 C L Pulse Rate 81 81 90 Respiratory Rate 16 20 Blood Pressure 167/87 H 112/68 Pulse Oximetry 100 95 09/20/21 04:36 Temperature 36.6 C Pulse Rate 83 Respiratory Rate 18 Blood Pressure 117/81 Pulse Oximetry 94 Intake/Output Intake/Output: Intake & Output 09/17/21 09/18/21 09/19/21 09/20/21 23:59 23:59 23:59 23:59 Intake Total 2014 6780 1440 Output Total 800 200 800 Balance 1215 3340 640 Meds/Results Medications: Active Medications Generic Name Dose Route Start Last Admin Trade Name Freq PRN Reason Stop Dose Admin Acetaminophen 650 mg 09/18/21 11:14 09/20/21 05:45 Acetaminophen 325 Mg Tablet PO 650 mg Q6H PRN Administration Mild Pain (1-3) or Fever Al Hydrox/Mg Hydrox/Simethicone 30 ml 09/18/21 11:14 Mag Hydrox/Al Hydrox/Simeth 30 Ml Udc PO Q6H PRN Indigestion Atorvastatin Calcium 40 mg 09/18/21 21:00 09/19/21 20:07 Atorvastatin 40 Mg Tablet PO 40 mg HS DESTINY Administration Carvedilol 12.5 mg 09/18/21 08:00 09/20/21 08:39 Car
[2021-09-20] MEDS: ONDANSETRON INJ 4 MG/2 ML VIAL IV PUSH (12:01)
[2021-09-20] MEDS: PANTOPRAZOLE 40 MG TABLET PO (12:02)
--- NOTE | 2021-09-20 12:07 | PM.DS ---
DS: Admitting Diagnosis Discharge Date 09/20/2021 Admitting Diagnosis Right hip pain after fall DS: Discharge Diagnosis Discharge Diagnosis (1) Closed comminuted intertrochanteric fracture of femur: Onset Date: 09/17/21 Qualifiers: Encounter type: initial encounter Laterality: right Qualified Code(s): S72.141A - Displaced intertrochanteric fracture of right femur, initial encounter for closed fracture Code(s): S72.143A - Displaced intertrochanteric fracture of unspecified femur, initial encounter for closed fracture Status: Acute Assessment and Plan: Pt sp right hip trochanteric nail Pt doing well with physical therapy, DC home with home health Pt to follow orthopedic recommendations (2) Alcoholism: Code(s): F10.20 - Alcohol dependence, uncomplicated Status: Acute Assessment and Plan: Pt advised to quit drinking alcohol DS: Summary Hospital Course Hospital Course: Pt admitted with Closed comminuted intertrochanteric fracture of femur. Doing well post op, as some mild hip pain with activity but otherwise doing okay with therapy. Stable for DC. Time Spent with Patient Time attestation: Total time spent providing and/or coordinating discharge services:38 minutes on day of discharge Exam Narrative: Generally: middle aged lady frail tired appearing thin Respiratory: Clear to auscultation bilaterally, no increased work of breathing Cardiovascular: Regular rate, regular rhythm, 2+ bilateral radial pedal pulses Gastrointestinal: Soft, nontender, nondistended, positive bowel sounds Skin: Generalized pallor, non jaundice Musculoskeletal: sp hip surgery Neurological: Alert oriented to person and place. She was confused as to the month and thought it was July she thought the year was 2020. She knew the name of the president. Psychiatric: Appropriate mood and affect, pleasant and cooperative Discharge Plan Discharge Attending physician on discharge: Estelle Lima Consulting providers: Efren Allen ; Preet Rodriguez ; Naveen Morocho ; Richard Davis ; Paty Bhagat Discharging Clinician: Estelle Lima Anticipated Discharge Date/Time: 09/20/21 12:06 Patient Disposition: Home Health Service Activity: may shower and no driving Diet: as tolerated Wound Care Instructions: follow printed instructions Discharge Instructions: Orthopedic Recommendations Dr. Efren Allen [phone] Weight bearing as tolerated. Walker. Fall prevention. Pain control. Ice outside of hip. Monitor dressing. Change on post-op day#7 and remove on post-op day #14 DVT prevention x28 days total. Contact our office at [phone] with any questions/concerns. HOME WITH [facility] NURSES AND PT/OT [phone] Patient Instructions: Antibiotic Form, Rivaroxaban (By mouth), How to Stop Smoking (GEN), Pain Management (DC), Judge Catheter Placement and Care (DC), Safe Use of Anticoagulants (GEN), Blood Thinners (GEN) Stand Alone Forms: General Discharge Information Follow-up/Referrals: Efren Allen MD [Physician] - 6 Weeks (Contact our office for an appt at discharge for 6 weeks. ) Discharge Medications: New sennosides-docusate sodium [Senokot-S] 8.6-50 mg Tablet 2 tab PO BID 30 Days Qty: 60 RF: 0 hydrocodone-acetaminophen 7.5-325 mg Tablet 1 - 2 tablet PO Q6H PRN (Reason: Pain ) Qty: 50 RF: 0 Xarelto 10 mg Tablet 10 mg PO DAILY@17 28 Days Qty: 28 RF: 0 Continued atorvastatin 40 mg tablet 40 mg PO DAILY Qty: 90 RF: 1 atorvastatin 40 mg tablet 40 mg PO HS RF: 0 carvedilol 25 mg tablet 12.5 mg PO BID RF: 0 venlafaxine 150 mg capsule,extended release 24hr 150 mg PO DAILY RF: 0 levothyroxine 50 mcg tablet 50 mcg PO DAILY RF: 0 pantoprazole 40 mg tablet,delayed release (DR/EC) 40 mg PO BID RF: 0 melatonin 3 mg PO HS PRN (Reason: Insomnia) RF: 0 mecobalamin (vitamin
== END 2021-09-20 13:16 | disposition home health service (06) | DRG 482 ==
LOC: ANHED 19:48 → ANH2MED 22:25
PROVIDERS: Chiropractor; Orthopaedic Surgery; Admitting Provider Internal Medicine; Emergency Provider Nurse Practitioner Family; PCP Internal Medicine; Visit Provider Family Medicine
PROC: 0QS636Z Reposition Right Upper Femur with Intramedullary Internal Fixation Device, Percutaneous Approach (ICD-10-PCS; CPT 27245; principal; 2021-09-18 07:30)
DX: S72.141A Displaced intertrochanteric fracture of right femur, initial encounter for closed fracture (principal); I10 Essential (primary) hypertension; K21.9 Gastro-esophageal reflux disease without esophagitis; E78.5 Hyperlipidemia, unspecified; E03.9 Hypothyroidism, unspecified; F17.210 Nicotine dependence, cigarettes, uncomplicated; Z96.1 Presence of intraocular lens; F10.20 Alcohol dependence, uncomplicated; Z98.42 Cataract extraction status, left eye; Z98.41 Cataract extraction status, right eye
CPT/HCPCS: 36415; 51702; 51703; 73502; 73700; 80048; 80053; 81001; 85025; 85027; 85610; 85730; 86850; 86900; 86901; 93005; 96374; 96375; 96376; 97110; 97116; 97162; 97165; 97530; 97535; 99285; A9270; C1713; J0690; J1100; J1170; J1741; J2250; J2270; J2405; J2704; J3010; J3360; J7030; J7120

== ENCOUNTER → 2022-04-06 14:19 | Outpatient (CLI) | payer MEDICARE, SELFPAY ==
--- NOTE | ~2022-04-06 | DEXA_ITS ---
Bone Density Report Name: MELITA MARKS Age: 66 Sex: Female Ethnicity: White Date of : 1955 Indication: postmenopausal; screening for osteoporosis; height loss; prior fracture; Referring Provider: JIM GALLEGOS Study: Bone densitometry was performed. Exam Date: April 06, 2022 Accession number: [id number] Bone Density: Region BMD T-score Z-score Classification AP Spine (L1, L3, L4) 0.954 -0.9 1.1 Normal Femoral Neck (Left) 0.582 -2.4 -0.7 Osteopenia Total Hip (Left) 0.621 -2.6 -1.2 Osteoporosis World Health Organization criteria for BMD impression classify patients as: Normal (T-score at or above -1.0), Osteopenia (T-score between -1.0 and -2.5), or Osteoporosis (T-score at or below -2.5). 10-year Fracture Risk: FRAX not reported because: Some T-score for Spine Total or Hip Total or Femoral Neck at or below -2.5 Prior hip or vertebral fracture Clinical Information Provided by Patient: Have had a previous hip or vertebral fracture Has had a low trauma fracture Smokes Patient maximum height was 71 Menopause Age: 46 No regular weight bearing exercise Does not regularly consume dairy products Drinks caffeinated beverages Onset of menses at age 10 Number of children 2 Impression: The patient has established osteoporosis, based on the Left Total Hip T-score and the existence of a prior fracture. The patient has risk factors, including: smoking, previous fracture. Discussion: HIGH RISK OF FRACTURE. BONE DENSITY IS UNDESIRABLY LOW AT ONE OR MORE SKELETAL SITES, CONSISTENT WITH POSTMENOPAUSAL OSTEOPOROSIS. This patient's lowest T-score, in a patient who has previously fractured, meets the World Health Organization's (WHO) criteria for severe osteoporosis. In untreated patients, the risk of osteoporotic fracture increases approximately two-fold for each 1.0 SD decrease in T-score. Low bone density is not the only risk factor for fracture; also consider factors such as patient's age, frailty or poor health, risk of falling, risk of injury, previous osteoporotic fracture, family history of osteoporosis, cigarette smoking, low body weight, etc. Not everyone with low bone mineral density has osteoporosis; osteomalacia and other metabolic bone disorders should also be considered. Patients who have osteoporosis should be evaluated for specific diseases and conditions (secondary causes) that may cause or contribute to bone loss. The [place] [employer] Endocrinologists (AACE) and National Osteoporosis Foundation (NOF) recommend pharmacologic intervention for all postmenopausal women with a previous hip or vertebral fracture and a T-score in this range. The patient should follow a healthful lifestyle (good nutrition with adequate calcium and vitamin D, and appropriate weight-bearing exercise). Follow-Up: Consider a repeat BMD and Vertebr
== END ==
PROVIDERS: PCP Internal Medicine; Visit Provider Internal Medicine
DX: Z78.0 Asymptomatic menopausal state (principal); M85.852 Other specified disorders of bone density and structure, left thigh; M81.0 Age-related osteoporosis without current pathological fracture
CPT/HCPCS: 77080

== ENCOUNTER 2023-03-08 08:27 | Outpatient (CLI) | payer MEDICARE, SELFPAY ==
--- NOTE | ~2023-03-08 | CT_ITS ---
EXAMINATION: CT brain & sinus wo con DATE: 03/08/2023 08:48 INDICATION: Headache. TECHNIQUE: Computed tomography (CT) of the head and paranasal sinuses was performed without intraveno us contrast. The mA was adjusted according to patient size. Iterative reconstruction technique was em ployed. The dose-length product was 832.33 mGy-cm. COMPARISON: None FINDINGS: CT HEAD: There is no intracranial hemorrhage, acute infarction, or abnormal intracranial mass lesion. There are scattered areas of low attenuation in the cerebral white matter. The ventricles are normal in size. There are likely changes of ocular lens replacement surgeries. The mastoid air cells are no rmal. CT SINUSES: There is mild mucosal thickening in the frontal recesses, anterior ethmoid sinuses, and m axillary sinuses. The sphenoid sinuses are clear. The nasal septum is at midline. There are changes o f uncinectomies, middle turbinectomies, and ethmoidectomies. There is dehiscence of medial wall of ri ght orbit. The ostiomeatal units are widely patent. IMPRESSION: 1. Moderate nonspecific cerebral white matter disease, which likely represents chronic small vessel i schemic disease. 2. Mild mucosal thickening in the paranasal sinuses. Reviewed, dictated and finalized at location A. IMPRESSION: 1. Moderate nonspecific cerebral white matter disease, which likely represents chronic small vessel ischemic disease. 2. Mild mucosal thickening in the paranasal sinuses.
== END 2023-03-08 08:28 | disposition home or self-care (01) ==
PROVIDERS: PCP Internal Medicine; Visit Provider Internal Medicine
DX: R51.9 Headache, unspecified (principal); R93.0 Abnormal findings on diagnostic imaging of skull and head, not elsewhere classified
CPT/HCPCS: 70450; 70486

== ENCOUNTER 2024-01-25 10:38 | Outpatient (CLI) | payer MEDICARE, SELFPAY ==
--- NOTE | 2024-01-25 11:08 | ECG_ITS ---
Test Date: 2024-01-25 11:17:25 Measurements Intervals [place] Rate: 63 P: 66 LA: 181 QRS: 39 QRSD: 102 T: 52 QT: 410 QTc: 421 Interpretive Statements SINUS RHYTHM POSSIBLE LEFT ATRIAL ENLARGEMENT INCOMPLETE RIGHT BUNDLE BRANCH BLOCK BASELINE ARTIFACT- I, III, AVR, AVL, AVF, V2-V3 BORDERLINE ECG No previous ECG available for comparison Electronically Signed On 01-25-2024 11:25:03 CDT by Richard Davis D.O.
[2024-01-25 11:19] LABS: Basophils Absolute Auto 0.1 K/mm3 (0.0-0.1); Basophils Percent Auto 0.7 % (0.2-1.2); Eosinophils Absolute Auto 0.5 K/mm3 (0-0.3); Hematocrit 38.2 % (37.0-47.0); Hemoglobin 12.3 g/dL (12.0-15.0); Immature Granulocyte Absolute 0.02 K/mm3 (0.00-0.031); Immature Granulocyte Percent A 0.2 % (0-0.5); Lymphocytes Absolute Auto 1.77 K/mm3 (0.9-3.2); Lymphocytes Percent Auto 21.5 % (18.3-44.2); Mean Corpuscular HGB Conc 32.2 g/dl (32-36); Mean Corpuscular Volume 99.5 fl (80-100); Mean Platelet Volume 9.7 fl (7.4-10.4); Monocytes Absolute Auto 0.7 K/mm3 (0.1-0.6); Monocytes Percent Auto 8.3 % (2.6-8.5); Neutrophils Absolute Auto 5.2 K/mm3 (1.3-6.7); Neutrophils Percent Auto 63.3 % (45.5-73.1); Platelet Count Result 356 k/mm3 (150-375); Red Blood Count 3.84 M/mm3 (4.2-5.4); Red Cell Distribution Width 13.5 % (11.5-14.5); White Blood Count 8.2 K/mm3 (4.5-10.0)
[2024-01-25 11:29] LABS: Alanine Aminotransferase 13 U/L (6-35); Alkaline Phosphatase 78 U/L (38-126); Anion Gap 3 mmol/L (4-12); Aspartate Amino Transferase 26 U/L (14-36); Bilirubin,Total 0.6 mg/dL (0.2-1.3); Blood Urea Nitrogen 14 mg/dL (7-17); Calcium 8.7 mg/dL (8.4-10.2); Carbon Dioxide 33 mmol/L (22-30); Chloride 107 mmol/L (98-107); Estimated Glomerular Filt Rate > 60; Glucose 95 mg/dL (65-110); Potassium 3.7 mmol/L (3.4-5.0); Sodium 143 mmol/L (137-145)
[2024-01-25 11:48] LABS: Parathyroid Intact 189.5 pg/mL (7.5-53.5)
[2024-01-25 11:58] LABS: Thyroid Stimulating Hormone 0.703 uIU/mL (0.465-4.680)
[2024-01-25 12:00] LABS: Hemoglobin A1C 5.1 % (<5.7)
[2024-01-26 15:39] LABS: Ionized Calcium 4.8 mg/dL (4.7-5.5)
== END 2024-01-25 10:39 | disposition home or self-care (01) ==
PROVIDERS: PCP Internal Medicine; Referring Provider Anesthesiology; Visit Provider Internal Medicine
DX: E78.5 Hyperlipidemia, unspecified (principal); I10 Essential (primary) hypertension; D64.9 Anemia, unspecified; E03.9 Hypothyroidism, unspecified; R73.9 Hyperglycemia, unspecified; I45.10 Unspecified right bundle-branch block
CPT/HCPCS: 36415; 80053; 82330; 83036; 83970; 84443; 85025; 93005

== ENCOUNTER 2024-01-31 07:42 | Day surgery (SDC) | payer MEDICARE, SELFPAY ==
[2024-01-22 12:56] VITALS: BMI 17.6
--- NOTE | 2024-01-31 07:14 | P.HPUP_ITS ---
History and Physical Update Update Date/Time: 01/31/24 07:14 Patient seen and examined in pre-operative holding area. No interval change in medical history or symptoms. Patient recalls previous discussion of benefits and alternatives to procedure. Continues to desire to proceed with right ring finger fasciectomy possible small finger fasciectomy. Reviewed procedure, post- op expectations and risks including but not limited to bleeding, infection, injury to tendon/nerve/vessel, decreased hand function, stiffness, RSD, no change or worsening of symptoms, recurrence, incomplete release. I discussed the possible use of assistants and their participation in the case. Patient stated understanding and signed the consent form wishing to proceed.
--- NOTE | 2024-01-31 07:14 | P.OP_ITS ---
Procedure Note - Detailed Date of Procedure 01/31/24 Pre-op Diagnosis Dupuytrens Contracture Right Ring Finger and early cord formation right small finger Post-op Diagnosis Same Procedure Performed right ring finger fasciectomy Surgeon Graciela Yan MD Anatomic Pathology Manager [facility] [facility] Anesthesia MAC Description of Procedure INFORMED CONSENT: The patient was seen and examined and marked in the pre-op area.? The patient signed the consent form. PROCEDURE IN DETAIL:The patient taken back to OR on the stretcher in supine position. Time out performed with anesthesia, surgeon and staff agreeing on patient's name site and surgery to be performed SCDs were placed on the lower extremities and inflated. A tourniquet was placed on {right} upper extremity and antibiotics given IV After anesthesia administered sedation I injected {6}cc 1%lido and 0.5% marcaine plain at the operative site The?{right upper extremity}?was prepped and draped in sterile fashion the??{right upper extremity} was? exsanguinated with Esmarch bandage and tourniquet inflated to 250mmHg I proceeded with making a longitudinal incision from the palm near the origin of the cord going to the ring finger distally past the PIP joint flexion crease going obliquely across the flexion creases with a 15 blade scalpel. I elevated my skin flaps above the fascia to expose the cord. I circumferentially dissected around the cord near its origin proximally with Littler scissors. I transected the cord. I proceeded with anterograde dissection of the cord until I was able to achieve near full extension of the MP and PIP joint. The neurovascular bundles were protected throughout the procedure. I irrigated with normal saline and closed skin with 4-0 chromic. There did not appear to be any further restriction of the small fingers motion and despite having a small palpable early cord formation the decision was made not to proceed with small finger fasciectomy. A dressing of xeroform, 4x4, elian, and an ulnar gutter splint was applied in straight position for patient safety, security, and comfort and secured with an esteban bandage after the tourniquet was let down noting the hand was warm and well perfused. The patient was then awaken from anesthesia and transferred to the recovery room in stable condition.? Complications - none EBL- 0cc Disposition - home in stable conditions telly [facility] pa-c was essentail for positioning, retraction, closure and dressing placement [facility] Billing Surgery - Charge Forward: Surgery Billing ([id number] for telly)
--- NOTE | 2024-01-31 07:21 | WPDANESEPPF ---
Anes - Initial Pre Proc Eval Procedure: Operation Date: 01/31/24 10:00 Proposed Procedures p Right Ring Finger Fasciectomy - Graciela Yan MD Date/Time: 01/31/24 07:21 Surgeon: Graciela Yan MD Pre Op Diagnosis: Dupuytrens Contracture Right Ring Finger Patient Data Age: 68 Gender: F Height: 1.75 m Weight: 54 kg Allergies Allergy/AdvReac Type Severity Reaction Status Date / Time latex Allergy Intermediate Rash Verified 01/31/24 09:12 adhesive tape Allergy Unknown BLISTERS Verified 01/31/24 09:12 Home Medications Medication Instructions Recorded Confirmed Type melatonin 3 mg PO HS PRN Insomnia 09/17/21 01/31/24 History venlafaxine 150 mg 150 mg PO DAILY #30 caps 08/14/23 01/31/24 Rx capsule,extended release 24 hr levothyroxine 50 mcg tablet 50 mcg PO DAILY #90 tabs 09/05/23 01/31/24 Rx lisinopril 40 mg tablet 40 mg PO DAILY #90 tabs 09/05/23 01/31/24 Rx atorvastatin 40 mg tablet 40 mg PO DAILY #90 tabs 11/05/23 01/31/24 Rx pantoprazole 40 mg tablet,delayed 40 mg PO BID #180 tabs 11/05/23 01/31/24 Rx release ibandronate 150 mg tablet 150 mg PO MONTHLY #3 tabs 01/02/24 01/31/24 Rx carvedilol 25 mg tablet (Coreg) 25 mg PO Q12H #180 tabs 01/03/24 01/31/24 Rx tramadol 50 mg tablet 50 mg PO Q6H PRN pain #12 tabs 01/31/24 Rx Patient hx anesthesia problems: none Family hx anesthesia problems: none Results Review: All pre-operative results and documents have been reviewed as part of the pre-operative evaluation. [facility] Past Medical History Medical History Alcoholism Chronic sinus complaints Claustrophobia Constipation Depression Encounter for postoperative care Essential hypertension GERD (gastroesophageal reflux disease) Hyperlipidemia Hypertension Hypothyroidism Skin cancer Surgical History Surgical History H/O removal of cyst between ring finger and middle finger History of arthroscopic knee surgery Bilateral History of delivery History of section X2 History of rhinoplasty History of sinus surgery History of sinus surgery Status post cataract extraction of both eyes with insertion of intraocular lens Status post open reduction with internal fixation of fracture Right ankle fracture Family History Family History Father Family history of Parkinson's disease Patient's father is Mother Patient's mother is Mother , at 90 years old CHF (congestive heart failure) Father , At 86 years old Dementia Other Arthritis Asthma Depression HLD (hyperlipidemia) Heart disease Hypertension Social History Social History Social History: The patient lives at home with her of 30 years. Both she and her are alcoholics. She reports that she has cut down on her alcohol use to 1 shot every couple of days. Prior to that she was drinking about a 5th of alcohol a day. She does continue to smoke. She started smoking at the age of 29 and a smoked as much as a pack of cigarettes per day. She is down to 0.5 packs of cigarettes per day. She uses marijuana frequently. She is retired from [employer] she worked in [employer]. She is independent in activities of daily living. Smoking packs per day: 0.5 Smoking cigarettes per day: 10.0 Years smoked: 30 Smoking pack-years: 15.00 Smoking status: Current every day smoker Tobacco type: cigarettes Second hand tobacco smoke exposure: Yes Alcohol intake: current Drinks per week: 0 Alcohol use details: 0-1 PER WEEK, RARELY Substance use: current Substance use type: marijuana Other substance usage details: 1-2/WEEK Lack of Transportation: No Lack of Food: Never True Current Housing: I Have Housing Con
[2024-01-31 09:23] VITALS: BMI 18.1
[2024-01-31 09:27] VITALS: BP 149/100; PULSE 60; RESP 18; TEMP 37.3; O2SAT 100
[2024-01-31] MEDS: LACTATED RINGERS 1,000 ML 30 ML IV CONT (09:50)
[2024-01-31] MEDS: ceFAZolin SODIUM 2 GM/20 ML SW SYRINGE IV PUSH (10:28)
[2024-01-31] MEDS: LIDOCAINE HCL 1% LOCAL INJ 10 ML VIAL INFILTRATE (10:37)
[2024-01-31 11:05] VITALS: BP 120/103; PULSE 64; RESP 16; O2SAT 97
--- NOTE | 2024-01-31 11:09 | WPDANESPN ---
Anes - Prog Note Post-Op Date/Time: 01/31/24 11:09 Cardiovascular status: normal Respiratory status: normal Airway patency: baseline Mental status: baseline Post-Op hydration status: normal Vital Signs: Last Vital Signs Temp 37.3 C 01/31/24 09:27 Pulse 60 01/31/24 09:27 Resp 18 01/31/24 09:27 BP 149/100 H 01/31/24 09:27 Pulse Ox 100 01/31/24 09:27 O2 Del Method Room Air 01/31/24 09:27 Pain Score (VAS): 0 Post-procedural complaints: none Patient Feedback: Patient satisfied with anesthetic care.
[2024-01-31 11:25] VITALS: BP 141/97; PULSE 62; RESP 20; O2SAT 98
--- NOTE | 2024-01-31 11:38 | SUR.PHASEII ---
PT DRESSED AND READY FOR DISCHARGE. UNABLE TO REACH SPOUSE FOR RIDE HOME.
== END 2024-01-31 12:10 | disposition home or self-care (01) ==
PROVIDERS: PCP Internal Medicine; Visit Provider Plastic Surgery
PROC: (CPT 26045; principal; 2024-01-31 10:00)
DX: M72.0 Palmar fascial fibromatosis [Dupuytren] (principal)
CPT/HCPCS: 26123

== ENCOUNTER 2024-01-31 08:36 | Outpatient (NON) | payer MEDICARE, SELFPAY | END 2024-01-31 08:37 | disposition home or self-care (01) | LOC: ANHLAB 02-01 08:41 | PROVIDERS: PCP Internal Medicine; Visit Provider Plastic Surgery | DX: M72.0 Palmar fascial fibromatosis [Dupuytren] (principal) | CPT/HCPCS: 88304 ==

== ENCOUNTER 2024-03-06 07:24 | Day surgery (SDC) | payer OTHER, MEDICARE, SELFPAY ==
[2024-02-27 08:43] VITALS: BMI 17.8
--- NOTE | 2024-03-06 07:07 | WPDHPUPDATE1 ---
History and Physical Update Update Date/Time: 03/06/24 07:07 Patient seen and examined in pre-operative holding area. No interval change in medical history or symptoms. Patient recalls previous discussion of benefits and alternatives to procedure. Continues to desire to proceed with left volar wrist ganglion excision . Reviewed procedure, post-op expectations and risks including but not limited to bleeding, infection, injury to tendon/nerve/vessel, decreased hand function, stiffness, RSD, no change or worsening of symptoms, recurrence. I discussed the possible use of assistants and their participation in the case. Patient stated understanding and signed the consent form wishing to proceed.
--- NOTE | 2024-03-06 07:08 | W.PM.PROC2 ---
Procedure Note - Detailed Date of Procedure 03/06/24 Pre-op Diagnosis Ganglion Cyst Left Wrist Post-op Diagnosis Same Procedure Performed left volar wrist ganglion excision Surgeon Graciela Yan MD Senior Product Development Engineer [facility] [place] [facility] Anesthesia MAC Description of Procedure INFORMED CONSENT: The patient was seen and examined and marked in the pre-op area.? The patient signed the consent form. PROCEDURE IN DETAIL:The patient taken back to OR on the stretcher in supine position. Time out performed with anesthesia, surgeon and staff agreeing on patient's name site and surgery to be performed SCDs were placed on the lower extremities and inflated. A tourniquet was placed on {left} upper extremity and antibiotics given IV After anesthesia administered sedation I injected {6}cc 1%lido with epi and 0.5% marcaine plain at the operative site The?{left upper extremity}?was prepped and draped in sterile fashion the??{left upper extremity} was? exsanguinated with Esmarch bandage proximal to the mass and tourniquet inflated to 250mmHg I proceeded with making a longitudinal incision over the mass through skin and dermis with a 15 blade scalpel. Littler scissors were used to spread to subcutaneous tissue identifying the mass. I proceeded with circumferential dissection of the mass From proximal to distal with Littler scissors and 15 blade scalpel. The cystic mass was closely associated with the radial artery. No clear stalk was identified coming from the wrist capsule or neighboring FCR. The mass was further excised with bipolar cautery. At the distal aspect of the mass there was notable deformation of anatomy with thickened tissue closely adherent to the radial artery. The tourniquet was let down for further examination. The radial artery was identified and protected and intact with good perfusion to the hand. Attempting to dissect this mass to see if it was further ganglion cyst I identified a thickened separate mass that may be consistent with chondrocalcinosis. This secondary mass was resected and sent for pathology. I also attempted aspiration of what seemed to be shipley deeper tissue to identify any residual ganglion cyst but no further synovial jelly or cystic mass was clearly identified. Given no clear remaining mass and or ganglion cyst no further dissection of this thickened tissue surrounding the radial artery was performed. I irrigated with normal saline. 4-0 Monocryl was used for dermis and subcuticular closure. A dressing of Dermabond, 4x4, elian, and an esteban bandage was applied after the tourniquet was let down noting the hand was warm and well perfused. The patient was then awaken from anesthesia and transferred to the recovery room in stable condition.? Complications - none EBL- 0cc Disposition - home in stable conditions telly [place] pa-c was essential for positioning, retraction, closure and dressing placement [facility] Billing Surgery - Charge Forward: Surgery Billing ([id number], for telly)
[2024-03-06 09:24] VITALS: BP 150/100; PULSE 66; RESP 18; TEMP 36.6; O2SAT 100; BMI 18.0
[2024-03-06] MEDS: LACTATED RINGERS 1,000 ML 30 ML IV CONT (09:36)
--- NOTE | 2024-03-06 09:39 | WPDANESEPPF ---
Anes - Initial Pre Proc Eval Procedure: Operation Date: 03/06/24 10:45 Proposed Procedures p Excision Ganglion Cyst Left Wrist - Graciela Yan MD Date/Time: 03/06/24 09:39 Surgeon: Graciela Yan MD Pre Op Diagnosis: Ganglion Cyst Left Wrist Patient Data Age: 68 Gender: F Height: 1.75 m Weight: 55.3 kg Last Vital Signs Temp 36.6 C 03/06/24 09:24 Pulse 66 03/06/24 09:24 Resp 18 03/06/24 09:24 BP 150/100 H 03/06/24 09:24 Pulse Ox 100 03/06/24 09:24 O2 Del Method Room Air 03/06/24 09:24 Allergies Allergy/AdvReac Type Severity Reaction Status Date / Time latex Allergy Intermediate Rash Verified 03/06/24 09:22 adhesive tape Allergy Unknown BLISTERS Verified 03/06/24 09:22 Home Medications Medication Instructions Recorded Confirmed Type melatonin 3 mg PO HS PRN Insomnia 09/17/21 03/06/24 History atorvastatin 40 mg tablet 40 mg PO DAILY #90 tabs 11/05/23 03/06/24 Rx pantoprazole 40 mg tablet,delayed 40 mg PO BID #180 tabs 11/05/23 03/06/24 Rx release ibandronate 150 mg tablet 150 mg PO MONTHLY #3 tabs 01/02/24 03/06/24 Rx carvedilol 25 mg tablet (Coreg) 25 mg PO Q12H #180 tabs 01/03/24 03/06/24 Rx venlafaxine 150 mg 150 mg PO DAILY #30 caps 02/12/24 03/06/24 Rx capsule,extended release 24 hr vitamins-lipotropics tablet 1 tablet PO DAILY 02/27/24 03/06/24 History levothyroxine 50 mcg tablet 50 mcg PO DAILY #90 tabs 03/05/24 03/06/24 Rx lisinopril 40 mg tablet 40 mg PO DAILY #90 tabs 03/05/24 03/06/24 Rx tramadol 50 mg tablet 50 mg PO Q6H PRN pain #12 tabs 03/06/24 Rx Patient hx anesthesia problems: none Family hx anesthesia problems: none Results Review: All pre-operative results and documents have been reviewed as part of the pre-operative evaluation. [facility] Past Medical History Medical History Alcoholism Chronic sinus complaints Claustrophobia Constipation Depression Encounter for postoperative care Essential hypertension GERD (gastroesophageal reflux disease) Hyperlipidemia Hypertension Hypothyroidism Skin cancer Surgical History Surgical History H/O removal of cyst between ring finger and middle finger History of arthroscopic knee surgery Bilateral History of delivery History of section X2 History of rhinoplasty History of sinus surgery History of sinus surgery Status post cataract extraction of both eyes with insertion of intraocular lens Status post open reduction with internal fixation of fracture Right ankle fracture Family History Family History Father Family history of Parkinson's disease Patient's father is Mother Patient's mother is Mother , at 90 years old CHF (congestive heart failure) Father , At 86 years old Dementia Other Arthritis Asthma Depression HLD (hyperlipidemia) Heart disease Hypertension Social History Social History Social History: The patient lives at home with her of 30 years. Both she and her are alcoholics. She reports that she has cut down on her alcohol use to 1 shot every couple of days. Prior to that she was drinking about a 5th of alcohol a day. She does continue to smoke. She started smoking at the age of 29 and a smoked as much as a pack of cigarettes per day. She is down to 0.5 packs of cigarettes per day. She uses marijuana frequently. She is retired from [employer] she worked in [employer]. She is independent in activities of daily living. Smoking packs per day: 0.5 Smoking cigarettes per day: 10.0 Years smoked: 30 Smoking pack-years: 15.00 Smoking status: Current every day smoker Tobacco type: cigarettes Second hand tobacco smoke exposure: Yes Alcohol intake
[2024-03-06] MEDS: ceFAZolin SODIUM 2 GM/20 ML SW SYRINGE IV PUSH (09:44)
[2024-03-06] MEDS: LIDO 1%/EPINEPHRINE 1:100,000 50 ML VIAL INFILTRATE (09:49)
[2024-03-06] MEDS: BUPivacaine HCL 0.5% 10 ML AMP 3 ML INFILTRATE (09:49)
[2024-03-06 10:34] VITALS: BP 131/93; PULSE 67; RESP 14; O2SAT 100
--- NOTE | 2024-03-06 10:48 | WPDANESPN ---
Anes - Prog Note Post-Op Date/Time: 03/06/24 10:48 Cardiovascular status: normal Respiratory status: normal Airway patency: baseline Mental status: baseline Post-Op hydration status: normal Vital Signs: Last Vital Signs Temp 36.6 C 03/06/24 09:24 Pulse 66 03/06/24 09:24 Resp 18 03/06/24 09:24 BP 150/100 H 03/06/24 09:24 Pulse Ox 100 03/06/24 09:24 O2 Del Method Room Air 03/06/24 09:24 Pain Score (VAS): 0/10 Patient Feedback: Patient satisfied with anesthetic care.
[2024-03-06 11:00] VITALS: BP 128/89; PULSE 67; RESP 18; O2SAT 99
[2024-03-06 11:20] VITALS: BP 144/99; PULSE 66; RESP 20; O2SAT 100
== END 2024-03-06 11:30 | disposition home or self-care (01) ==
PROVIDERS: PCP Internal Medicine; Visit Provider Plastic Surgery
PROC: (CPT 25111; principal; 2024-03-06 10:45)
DX: M67.432 Ganglion, left wrist (principal)
CPT/HCPCS: 25111

== ENCOUNTER 2024-03-06 08:36 | Outpatient (NON) | payer OTHER, MEDICARE, SELFPAY | END 2024-03-06 08:37 | disposition home or self-care (01) | LOC: ANHLAB 03-07 08:39 | PROVIDERS: PCP Internal Medicine; Visit Provider Plastic Surgery | DX: M67.432 Ganglion, left wrist (principal) | CPT/HCPCS: 88304 ==

== ENCOUNTER 2024-05-18 15:52 | Observation (INO) | payer OTHER, SELFPAY ==
--- NOTE | ~2024-05-18 | XR_ITS ---
XR chest 2V DATE: 05/18/2024 17:02 INDICATION: Lightheadedness, dizziness, headache for one day TECHNIQUE: 2 views, AP and lateral projections COMPARISON: 04/16/2017 2 view chest FINDINGS: Normal heart size. No hilar or mediastinal enlargement. Mild bilateral hyperinflation. No pulmonary infiltrate or consolidation, pleural effusion or pulmonar y vascular congestion or pneumothorax is detected. Dextroscoliosis and degenerative spurring of the thoracic spine, levoscoliosis of the lumbar spine. Osteopenia. IMPRESSION: No active cardiopulmonary disease Reviewed, dictated and finalized at location A.
[2024-05-18 15:54] VITALS: BP 122/93; PULSE 66; RESP 14; TEMP 36.4; O2SAT 97
--- NOTE | 2024-05-18 16:11 | ECG_ITS ---
Test Date: 2024-05-18 17:28:37 Measurements Intervals [place] Rate: 62 P: 25 MA: 167 QRS: 38 QRSD: 109 T: 33 QT: 444 QTc: 452 Interpretive Statements SINUS RHYTHM WITH OCCASIONAL VENTRICULAR PREMATURE COMPLEXES Compared to ECG 01/25/2024 11:17:25 Ventricular premature complex(es) now present Incomplete right bundle-branch block no longer present Electronically Signed On 05-19-2024 10:53:09 CDT by Eddie Dumont M.D.
--- NOTE | 2024-05-18 16:21 | ED.DIZZY ---
HPI - Dizziness General Chief Complaint: Dizziness Stated Complaint: headache/dizzy x 2 days Source: patient and EMS Mode of arrival: EMS Limitations: no limitations History of Present Illness HPI Narrative: This is a 69-year-old female, with history recurrent ear infections and BPPV, who presents to the emergency department complaining of lightheadedness beginning yesterday. The patient states over the past 2 days, she has had recurrent episodes nausea and ?projectile? vomiting as well as nonbloody diarrhea.. She denies any recent sick contacts or travel. She states 1 episode of vomiting appeared black though all others were nonbloody. She denies chest pain, shortness of breath or loss of consciousness. She has no other complaints at this time. EMS reports, the patient was hypotensive to the 80s on arrival. She was given an IV bolus with improvement to 106/70. Related Data Home Medications Medication Instructions Recorded Confirmed melatonin 10 mg PO HS PRN Insomnia 09/17/21 05/18/24 vitamins-lipotropics tablet 1 tablet PO DAILY 02/27/24 05/18/24 atorvastatin 40 mg tablet 40 mg PO HS 05/18/24 05/18/24 Allergies Allergy/AdvReac Type Severity Reaction Status Date / Time latex Allergy Intermediate Rash Verified 05/18/24 16:00 adhesive tape Allergy Unknown BLISTERS Verified 05/18/24 16:00 Review of Systems Review of Systems: All systems reviewed & are unremarkable except as noted in HPI and below PMFSH Past Medical History Medical History Alcoholism Chronic sinus complaints Claustrophobia Constipation Depression Encounter for postoperative care Essential hypertension GERD (gastroesophageal reflux disease) Hyperlipidemia Hypertension Hypothyroidism Skin cancer Surgical History Surgical History H/O removal of cyst between ring finger and middle finger History of arthroscopic knee surgery Bilateral History of delivery History of section X2 History of rhinoplasty History of sinus surgery History of sinus surgery Status post cataract extraction of both eyes with insertion of intraocular lens Status post open reduction with internal fixation of fracture Right ankle fracture Family History Family History Father Family history of Parkinson's disease Patient's father is Mother Patient's mother is Mother , at 90 years old CHF (congestive heart failure) Father , At 86 years old Dementia Other Arthritis Asthma Depression HLD (hyperlipidemia) Heart disease Hypertension Social History Social History Social History: The patient lives at home with her of 30 years. Both she and her are alcoholics. She reports that she has cut down on her alcohol use to 1 shot every couple of days. Prior to that she was drinking about a 5th of alcohol a day. She does continue to smoke. She started smoking at the age of 29 and a smoked as much as a pack of cigarettes per day. She is down to 0.5 packs of cigarettes per day. She uses marijuana frequently. She is retired from [employer] she worked in [employer]. She is independent in activities of daily living. Smoking packs per day: 0.5 Smoking cigarettes per day: 10.0 Years smoked: 40 Smoking pack-years: 20.00 Smoking status: Current every day smoker Tobacco type: cigarettes Second hand tobacco smoke exposure: Yes Alcohol intake: current Drinks per week: 4 Alcohol use details: 0-1 PER WEEK, RARELY Substance use: current Substance use type: marijuana Other substance usage details: occasional Do You Feel Safe in your Home?: Yes Lack of Transportation: No Lack of Food: Never True Current Housing: I Have Housing Concerned About Future Housing: No Difficulty Paying Gas/Electric Bills: No Difficulty Paying for Meds: No Currently Unemployed: No Education: High School Diploma/GED Difficulty w/ Childcare or Family Care: No Living arrangements: with family Occupation/Education: retired Gender identity (if verbalized by the patient): Female Spiritual care concerns: No Exam Narrative: GENERAL: Well-developed, well-nourished, and in no acute distress. HEAD: Normocephalic, atraumatic. EYES: PERRLA and EOMI. ENT: Nares clear, no rhinorrhea or epistaxis. Mucous membranes dry. Oropharynx without tonsillar hypertrophy exudate or other lesions. Bilateral TMs pearly kim nonbulging CHEST: Clear to auscultation. No respiratory distress. No wheezes rales or rhonchi HEART: Regular rate and rhythm. No murmur heard. Normal peripheral pulses. ABDOMEN: Soft, nontender, nondistended, normal active bowel sounds. EXTREMITIES: Normal range of motion. No edema. SKIN: Warm, dry, no rash. NEURO: Alert and oriented x3. No focal deficit. Moving all 4 limbs spontaneously PSYCH: Normal mood and affect. Course Course Emergency Course: 18:14 - CBC demonstrates mildly elevated white blood cell count of 11.1 but is otherwise unremarkable. Chemistries demonstrate mild hypokalemia with potassium of 3.3 and elevated creatinine of 1.8 with a baseline of 0.9. Lactic acid slightly elevated at 2.5. Troponin negative. UA demonstrates changes consistent with UTI. The patient tested negative for COVID, influenza RSV. Chest x-ray negative for pneumonia. EKG not concerning for ischemia. I suspect UTI as the cause of the patient's symptoms with subsequent SELAM. I discussed these findings with the patient and her spouse with recommendation for admission. The voiced understanding amenable to plan. I discussed with the patient with hospitalist, YULISA Cassidy who accepts admission. Vital Signs Vital signs: Vital Signs Temperature 97.5 F L 05/18/24 15:54 Pulse Rate 66 05/18/24 15:54 Respiratory Rate 14 05/18/24 15:54 Blood Pressure 122/93 H 05/18/24 15:54 Pulse Oximetry 97 05/18/24 15:54 Temperature 97.8 F 05/18/24 19:27 Pulse Rate 67 05/18/24 19:27 Respiratory Rate 16 05/18/24 19:27 Blood Pressure 118/72 05/18/24 19:27 Pulse Oximetry 100 05/18/24 19:27 MDM - Dizziness MDM Narrative Medical decision making narrative: Plan: Labs, imaging, EKG, troponin, IV fluids, reassess Differential Diagnosis Differential diagnosis: Likely other (Pneumonia, COVID, influenza, metabolic abnormality, dehydration, ACS, arrhythmia, other) Lab Data 05/18/24 16:52 05/18/24 16:52 Labs: Lab Results 05/18/24 05/18/24 Range/Units 16:52 17:37 WBC 11.1 H (4.5-10.0) K/mm3 RBC 4.02 L (4.2-5.4) M/mm3 Hgb 12.9 (12.0-15.0) g/dL Hct 38.7 (37.0-47.0) % MCV 96.3 (80-100) fl MCH 32.1 (26-34) pg MCHC 33.3 (32-36) g/dl RDW 14.1 (11.5-14.5) % Plt Count 300 (150-375) k/mm3 MPV 10.0 (7.4-10.4) fl Immature Gran % (Auto) 0.4 (0-0.5) % Neut % (Auto) 69.3 (45.5-73.1) % Lymph % (Auto) 17.3 L (18.3-44.2) % [place] % (Auto) 8.2 (2.6-8.5) % Eos % (Auto) 4.3 (0-4.4) % Baso % (Auto) 0.5 (0.2-1.2) % Lymph # (Auto) 1.91 (0.9-3.2) K/mm3 [place] # (Auto) 0.9 H (0.1-0.6) K/mm3 Eos # (Auto) 0.5 H (0-0.3) K/mm3 Baso # (Auto) 0.1 (0.0-0.1) K/mm3 Abs Immat Gran (auto) 0.04 H (0.00-0.031) K/mm3 Absolute Neuts (auto) 7.7 H (1.3-6.7) K/mm3 Absolute Nucleated RBC 0.000 (0.0-0.012) K/mm3 Nucleated RBC % 0.0 (0.0-0.2) % Sodium 137 (137-145) mmol/L Potassium 3.3 L (3.4-5.0) mmol/L Chloride 98 (98-107) mmol/L Carbon Dioxide 29 (22-30) mmol/L Anion Gap 10 (4-12) mmol/L BUN 30 H D (7-17) mg/dL Creatinine 1.80 H (0.7-1.0) mg/dL Estim Creat Clear Calc 20 ml/min Estimated GFR 28 L (59 - ) Glucose 130 H (65-110) mg/dL Lactic Acid 2.5 H (0.7-2.0) mmol/L Calcium 8.4 (8.4-10.2) mg/dL Total Bilirubin 0.5 (0.2-1.3) mg/dL AST 30 (14-36) U/L ALT 19 (6-35) U/L Alkaline Phosphatase 70 (38-126) U/L Troponin I < 0.012 (0.000-0.034) ng/mL Total Protein 7.0 (6.3-8.2) g/dL Albumin 3.8 (3.5-5.1) g/dL Urine Color Dark yellow (Yellow) Urine Appearance Cloudy H (Clear) Urine pH 5.5 (5.0-9.0) Ur Specific [place] 1.021 (1.001-1.035) Urine Protein Trace (Negative) mg/dL Urine Glucose (UA) Negative (Negative) mg/dL Urine Ketones Trace H (Negative) mg/dL Ur Blood (Man) Negative (Negative) Urine Nitrate Negative (Negative) Urine Bilirubin Negative (Negative) Urine Urobilinogen 0.2 (<2.0) mg/dL Add Ur Microanalysis Reviewed Leukocyte Esterase Rfl 1+ H (Negative) JUDITH/UL Urine RBC 0-2 (0-2) /hpf Urine WBC 6-10 H (0-3) /hpf Ur Squamous Epith Cells Moderate (Few) /hpf Urine Bacteria 1+ H /hpf Urine Casts >20 Influenza A (RT-PCR) Negative (Negative) Influenza B (RT-PCR) Negative (Negative) RSV (RT-PCR) Negative (Negative) SARS-CoV-2 RNA (RT-PCR) Negative (Negative) Discharge Plan Discharge Clinical Impression: Lightheadedness, Acute UTI, SELAM (acute kidney injury) Hypotension Qualifiers: Hypotension type: unspecified hypotension type Qualified Code(s): I95.9 - Hypotension, unspecified Patient Disposition: Still a Patient Condition: Stable Time of Disposition: 18:14
[2024-05-18 16:58] LABS: Basophils Absolute Auto 0.1 K/mm3 (0.0-0.1); Basophils Percent Auto 0.5 % (0.2-1.2); Eosinophils Absolute Auto 0.5 K/mm3 (0-0.3); Eosinophils Percent Auto 4.3 % (0-4.4); Hematocrit 38.7 % (37.0-47.0); Hemoglobin 12.9 g/dL (12.0-15.0); Immature Granulocyte Absolute 0.04 K/mm3 (0.00-0.031); Immature Granulocyte Percent A 0.4 % (0-0.5); Lymphocytes Absolute Auto 1.91 K/mm3 (0.9-3.2); Lymphocytes Percent Auto 17.3 % (18.3-44.2); Mean Corpuscular HGB Conc 33.3 g/dl (32-36); Mean Corpuscular Hemoglobin 32.1 pg (26-34); Mean Corpuscular Volume 96.3 fl (80-100); Monocytes Absolute Auto 0.9 K/mm3 (0.1-0.6); Monocytes Percent Auto 8.2 % (2.6-8.5); Neutrophils Absolute Auto 7.7 K/mm3 (1.3-6.7); Neutrophils Percent Auto 69.3 % (45.5-73.1); Platelet Count Result 300 k/mm3 (150-375); Red Blood Count 4.02 M/mm3 (4.2-5.4); Red Cell Distribution Width 14.1 % (11.5-14.5); White Blood Count 11.1 K/mm3 (4.5-10.0)
[2024-05-18 17:09] LABS: Lactic Acid Reflex 2.5 mmol/L (0.7-2.0)
[2024-05-18 17:10] LABS: Alanine Aminotransferase 19 U/L (6-35); Albumin Level 3.8 g/dL (3.5-5.1); Alkaline Phosphatase 70 U/L (38-126); Anion Gap 10 mmol/L (4-12); Aspartate Amino Transferase 30 U/L (14-36); Bilirubin,Total 0.5 mg/dL (0.2-1.3); Blood Urea Nitrogen 30 mg/dL (7-17); Calcium 8.4 mg/dL (8.4-10.2); Carbon Dioxide 29 mmol/L (22-30); Chloride 98 mmol/L (98-107); Estimated CRCL calculation 20 ml/min; Estimated Glomerular Filt Rate 28; Glucose 130 mg/dL (65-110); Potassium 3.3 mmol/L (3.4-5.0); Sodium 137 mmol/L (137-145)
[2024-05-18 17:21] LABS: Troponin I < 0.012 ng/mL (0.000-0.034)
[2024-05-18] MEDS: SODIUM CHLORIDE 0.9% IV 1,000 ML 999 ML IV CONT (17:24)
[2024-05-18] MEDS: ONDANSETRON INJ 4 MG/2 ML VIAL IV PUSH (17:24)
[2024-05-18 17:34] LABS: Influenza A QL RT-PCR Negative (Negative); Influenza B QL RT-PCR Negative (Negative); RSV RNA, RT-PCR Negative (Negative); SARS-CoV-2 RNA PCR Negative (Negative)
[2024-05-18 18:04] LABS: Add Urine Microscopic? YES; Appearance Urine Cloudy (Clear); Bacteria Urine 1+ /hpf; Bilirubin Urine Negative (Negative); Blood Urine Negative (Negative); Color Urine Dark Yellow (Yellow); Glucose Urine UA Negative (Negative); Ketones Urine Trace mg/dL (Negative); Leukocyte Esterase Ur 1+ LEU/UL (Negative); Need Manual Microscopic Reviewed; Nitrate Urine Negative (Negative); Non Pathogenic Casts >20; Protein Urine Trace mg/dL (Negative); RBC Urine 0-2 /hpf (0-2); Specific Grav Ur 1.021 (1.001-1.035); Squamous Epithelial Cell Urine Moderate /hpf (Few); Urobilinogen Urine 0.2 mg/dL (<2.0); pH Urine 5.5 (5.0-9.0)
--- NOTE | 2024-05-18 18:25 | P.HP_ITS ---
H&P: HPI History of Present Illness Date/Time: 05/18/24 18:25 Chief Complaint: Dizziness Narrative: This is a 69 year old female with a significant past medical history of recurrent ear infections, chronic sinusitis, BPPV, hypertension who presents to the hospital with complaints of lightheadedness which began yesterday and hypotension. Patient reports the following history of presenting illness. She States when she woke up this morning she felt like the room was spinning fast and her balance was off. she reports that with the dizziness she started having nausea and projectile vomiting. she reported that her left ear felt clogged but has had trouble with her ears for many many years. She also has chronic sinusitis and has had surgery on her sinuses in the past. She denies any sick contacts or recent illness. She does report postnasal drip, headaches that are related to her sinus issues, and dizziness. Patient denies Any fever, chills, diarrhea, abdominal pain, chest pain, shortness a breath. she has been diagnosed with BPPV in the past however denies being shown the Carmina maneuver and has not taken anything for her BPPV. She also reports that she has not taken anything for her chronic sinusitis. Work up in the hospital included chest x-ray was negative.Head/sinuses CT shown moderate nonspecific cerebral white matter disease, which likely represents chronic small vessel ischemic disease and mild mucosal thickening in the paranasal sinuses. Initial labs shown a WBC 11.1, K+ 3.3, Creatinine 1.80, eGFR 28, Lactic acid 2.5, troponin negative. UA shown cloudy urine appearance, trace ketones, 1+ leukocytes, 6-10 urine WBCs, 1+ urine bacteria, >20 urine casts. Respiratory panel negative for influenza A and B, RSV, COVID. Urine culture obtained and is pending. Patient was given 1L of NS while in the ER with improvement in her blood pressure. She was also given Zofran and Rocephin for suspected UTI. Review of Systems Review of Systems: All systems reviewed & are unremarkable except as noted in HPI and below Constitutional: Constitutional: Reports as per HPI and Reports no additional constitutional complaints Eyes: Eyes: Reports as per HPI and Reports no additional eye complaints ENT: Reports system reviewed and no additional complaints, except as documented and Reports as per HPI Cardiovascular: Cardiovascular: Reports as per HPI and Reports no additional cardiovascular complaints Respiratory: Respiratory: Reports as per HPI and Reports no additional respiratory complaints Gastrointestinal: Gastrointestinal: Reports as per HPI and Reports no additional gastrointestinal complaints Genitourinary: Genitourinary: Reports no additional female genitourinary complaints and Reports as per HPI Musculoskeletal: Musculoskeletal: Reports no additional musculoskeletal complaints and Reports as per HPI Integumentary/Breasts: Skin/Breast: Reports system reviewed and no additional complaints, except as docu and Reports as per HPI Neurologic: Reports system reviewed and no additional complaints, except as documented and Reports as per HPI Psychiatric: Psychiatric: Reports no additional psychiatric complaints and Reports as per HPI [facility] Past Medical History Medical History Alcoholism Chronic sinus complaints Claustrophobia Constipation Depression Encounter for postoperative care Essential hypertension GERD (gastroesophageal reflux disease) Hyperlipidemia Hypertension Hypothyroidism Skin cancer Surgical History Surgical History H/O removal of cyst between ring finger and middle finger History of arthroscopic knee surgery Bilateral History of delivery History of section X2 History of rhinoplasty History of sinus surgery History of sinus surgery Status post cataract extraction of both eyes with insertion of intraocular lens Status post open reduction with internal fixation of fracture Right ankle fracture Family History Family History Father Family history of Parkinson's disease Patient's father is Mother Patient's mother is Mother , at 90 years old CHF (congestive heart failure) Father , At 86 years old Dementia Other Arthritis Asthma Depression HLD (hyperlipidemia) Heart disease Hypertension Social History Social History Social History: The patient lives at home with her of 30 years. Both she and her are alcoholics. She reports that she has cut down on her alcohol use to 1 shot every couple of days. Prior to that she was drinking about a 5th of alcohol a day. She does continue to smoke. She started smoking at the age of 29 and a smoked as much as a pack of cigarettes per day. She is down to 0.5 packs of cigarettes per day. She uses marijuana frequently. She is retired from [employer] she worked in [employer]. She is independent in activities of daily living. Smoking packs per day: 0.5 Smoking cigarettes per day: 10.0 Years smoked: 40 Smoking pack-years: 20.00 Smoking status: Current every day smoker Tobacco type: cigarettes Second hand tobacco smoke exposure: Yes Alcohol intake: current Drinks per week: 4 Alcohol use details: 0-1 PER WEEK, RARELY Substance use: current Substance use type: marijuana Other substance usage details: occasional Do You Feel Safe in your Home?: Yes Lack of Transportation: No Lack of Food: Never True Current Housing: I Have Housing Concerned About Future Housing: No Difficulty Paying Gas/Electric Bills: No Difficulty Paying for Meds: No Currently Unemployed: No Education: High School Diploma/GED Difficulty w/ Childcare or Family Care: No Living arrangements: with family Occupation/Education: retired Gender identity (if verbalized by the patient): Female Spiritual care concerns: No Meds Home Medications and Allergies Home Medications Medication Instructions Recorded Confirmed Type melatonin 10 mg PO HS PRN Insomnia 09/17/21 05/18/24 History pantoprazole 40 mg tablet,delayed 40 mg PO BID #180 tabs 11/05/23 05/18/24 Rx release ibandronate 150 mg tablet 150 mg PO MONTHLY #3 tabs 01/02/24 05/18/24 Rx carvedilol 25 mg tablet (Coreg) 25 mg PO Q12H #180 tabs 01/03/24 05/18/24 Rx venlafaxine 150 mg 150 mg PO DAILY #30 caps 02/12/24 05/18/24 Rx capsule,extended release 24 hr vitamins-lipotropics tablet 1 tablet PO DAILY 02/27/24 05/18/24 History levothyroxine 50 mcg tablet 50 mcg PO DAILY #90 tabs 03/05/24 05/18/24 Rx lisinopril 40 mg tablet 40 mg PO DAILY #90 tabs 03/05/24 05/18/24 Rx atorvastatin 40 mg tablet 40 mg PO HS 05/18/24 05/18/24 History Allergies Allergy/AdvReac Type Severity Reaction Status Date / Time latex Allergy Intermediate Rash Verified 05/18/24 16:00 adhesive tape Allergy Unknown BLISTERS Verified 05/18/24 16:00 Vital Signs Vital Signs - 24 hr 05/18/24 15:54 Temperature 97.5 F L Pulse Rate 66 Respiratory Rate 14 Blood Pressure 122/93 H Pulse Oximetry 97 Exam Narrative: General: In no acute distress, well nourished Head: atraumatic, no encephalopathy Eyes:PERRLA, sclera clear ENT: moist mucous membranes, nasal passages clear , reports postnasal drip and chronic sinus problems Neck: supple, no JVD, no adenopathy, trachea midline Cardiac: Normal S1 and S2. No murmur, gallops or friction rubs, peripheral pulses intact. Respiratory: Lungs clear to auscultation, no adventitious lung sounds, currently on room air Gastrointestinal: soft, non-distended, non-tender, normoactive bowel sounds. : voiding without difficulty. Extremities: moves all extremities well, no edema Skin: clean, dry, intact. No wounds or lesions. Neuro: Alert and oriented x4, cranial nerves intact, no neuro deficits. Psych: normal mood, normal affect, interactive H&P: Results Labs Labs: Short CBC 05/18/24 Range/Units 16:52 WBC 11.1 H (4.5-10.0) K/mm3 Hgb 12.9 (12.0-15.0) g/dL Hct 38.7 (37.0-47.0) % Plt Count 300 (150-375) k/mm3 BMP 05/18/24 16:52 Sodium 137 Potassium 3.3 L Chloride 98 Carbon Dioxide 29 BUN 30 H D Creatinine 1.80 H Glucose 130 H Calcium 8.4 Cardiac Enzymes 05/18/24 Range/Units 16:52 Troponin I < 0.012 (0.000-0.034) ng/mL Liver Function 05/18/24 Range/Units 16:52 Total Bilirubin 0.5 (0.2-1.3) mg/dL AST 30 (14-36) U/L ALT 19 (6-35) U/L Alkaline Phosphatase 70 (38-126) U/L Albumin 3.8 (3.5-5.1) g/dL Urine 05/18/24 Range/Units 17:37 Urine Color Dark yellow (Yellow) Urine Appearance Cloudy H (Clear) Urine pH 5.5 (5.0-9.0) Ur Specific [place] 1.021 (1.001-1.035) Urine Protein Trace (Negative) mg/dL Urine Glucose (UA) Negative (Negative) mg/dL Imaging Chest x-ray: Radiologist's impression: XR chest 2V DATE: 05/18/2024 17:02 INDICATION: Lightheadedness, dizziness, headache for one day TECHNIQUE: 2 views, AP and lateral projections COMPARISON: 04/16/2017 2 view chest FINDINGS: Normal heart size. No hilar or mediastinal enlargement. Mild bilateral hyperinflation. No pulmonary infiltrate or consolidation, pleural effusion or pulmonary vascular congestion or pneumothorax is detected. Dextroscoliosis and degenerative spurring of the thoracic spine, levoscoliosis of the lumbar spine. Osteopenia. IMPRESSION: No active cardiopulmonary disease Reviewed, dictated and finalized at location A. head/sinus CT: Radiologist's impression: EXAMINATION: CT brain & sinus wo con DATE: 03/08/2023 08:48 INDICATION: Headache. TECHNIQUE: Computed tomography (CT) of the head and paranasal sinuses was performed without intravenous contrast. The mA was adjusted according to patient size. Iterative reconstruction technique was employed. The dose-length product was 832.33 mGy-cm. COMPARISON: None FINDINGS: CT HEAD: There is no intracranial hemorrhage, acute infarction, or abnormal intracranial mass lesion. There are scattered areas of low attenuation in the cerebral white matter. The ventricles are normal in size. There are likely changes of ocular lens replacement surgeries. The mastoid air cells are normal. CT SINUSES: There is mild mucosal thickening in the frontal recesses, anterior ethmoid sinuses, and maxillary sinuses. The sphenoid sinuses are clear. The nasal septum is at midline. There are changes of uncinectomies, middle turbinectomies, and ethmoidectomies. There is dehiscence of medial wall of right orbit. The ostiomeatal units are widely patent. IMPRESSION: 1. Moderate nonspecific cerebral white matter disease, which likely represents chronic small vessel ischemic disease. 2. Mild mucosal thickening in the paranasal sinuses. Reviewed, dictated and finalized at location A. Assessment and Plan Assessment and plan (1) Dizziness: Code(s): R42 - Dizziness and giddiness Status: Acute Assessment and Plan: -- patient reported that she got up this morning and felt like the room was spinning with associated nausea and vomiting. She has history BPPV however has never been taught the Carmina maneuver and has not been taking anything for her BPPV. * PT ordered to teach Carmina maneuver * will start meclizine (2) Sinusitis, acute: Code(s): J01.90 - Acute sinusitis, unspecified Status: Acute Assessment and Plan: -- reports chronic sinusitis however she does not take any medication. She has had sinus surgeries in the past. * CT of the head and sinuses showed mild mucosal thickening in the paranasal sinuses, moderate nonspecific cerebral white matter disease likely representing chronic small-vessel ischemic disease * patient was started on Mucinex DM, Claritin, Flonase (3) Dehydration: Code(s): E86.0 - Dehydration Status: Acute Assessment and Plan: --Reported Nausea, vomiting, diarrhea with associated dizziness and hypotension likely secondary to suspected UTI. was hypotensive on arrival however after receiving 1 L normal saline blood pressure improved while in the ED. * given 1 L normal saline while in the ED for hydration * CXR negative * Respiratory panel negative for influenza A and B, Covid, RSV * lactic acid 2.5 initially now down to 0.9 after IV fluids (4) SELAM (acute kidney injury): Code(s): N17.9 - Acute kidney failure, unspecified Status: Acute Assessment and Plan: * likely secondary to dehydration * creatinine 1.80, EGFR 28 * baseline creatinine appears to be 0.9, EGFR greater than 60 * avoid nephrotoxic medications * continue to hold lisinopril due to SELAM * continue to trend (5) Acute UTI: Code(s): N39.0 - Urinary tract infection, site not specified Status: Acute Assessment and Plan: --denies symptoms of a urinary tract infection including dysuria, urgency, frequency * UA showed cloudy urine appearance, trace ketone, 1+ leukocyte, 6-10 urine WBC, 1+ urine bacteria, greater than 20 urine cast * urine culture obtained and pending * patient was given a dose of Rocephin while in the ED, will hold off on any further antibiotics considering she is asymptomatic (6) Hypokalemia: Code(s): E87.6 - Hypokalemia Status: Acute Assessment and Plan: * potassium 3.3 on arrival * will give 40 mEq of potassium now (7) Hyperlipidemia: Code(s): E78.5 - Hyperlipidemia, unspecified Status: Acute Assessment and Plan: * continue atorvastatin (8) Essential (primary) hypertension: Code(s): I10 - Essential (primary) hypertension Status: Acute Assessment and Plan: * patient was hypotensive on arrival requiring IV fluids for dehydration * will hold off on lisinopril and Coreg for now (9) Hypothyroidism: Qualifiers: Hypothyroidism type: unspecified Qualified Code(s): E03.9 - Hypothyroidism, unspecified Code(s): E03.9 - Hypothyroidism, unspecified Status: Acute Assessment and Plan: * continue Synthroid Quality VTE Prophylaxis VTE prophylaxis: mechanical ordered Hospitalist MIPS Advance Care Plan I have confirmed that the patient's Advanced Care Plan is present, code status is documented, or surrogate decision maker is listed in patient medical record.: Yes Medication Reconciliation I have utilized all available resources to obtain, update and review the patients current medications (includes all prescriptions, OTC, herbals, cannabis, and nutritional supplements).: Yes
[2024-05-18 18:35] VITALS: BP 121/90; PULSE 79; RESP 20; O2SAT 100
[2024-05-18 18:57] VITALS: BP 106/63; PULSE 104; RESP 14; O2SAT 93
[2024-05-18 19:27] VITALS: BP 118/72; PULSE 67; RESP 16; TEMP 36.6; O2SAT 100
[2024-05-18 19:28] VITALS: BMI 18.3
--- NOTE | 2024-05-18 19:30 | ADMGEN ---
This patient, Faith Benito, was admitted to Medical Room 257-01. Patient/family oriented to hospital policies and general routines including ID bracelet, bed and alarms, visiting hours, pain management, procedures, bathroom and other care routines, personal items, smoking policy, room service/diet, and visiting hours. Information on how to activate the Rapid Response Team has been discussed. Patient/Family are encouraged to report perceived risks to care and to ask questions if they do not understand what they are told or what they should do.
[2024-05-18 19:56] LABS: Reflex Lactic Acid Yes or No Add Lactic
[2024-05-18 20:58] LABS: Lactic Acid 0.9 mmol/L (0.7-2.0)
[2024-05-18] MEDS: PANTOPRAZOLE 40 MG TABLET PO (21:03)
[2024-05-18] MEDS: ATORVASTATIN 40 MG TABLET PO (21:03)
[2024-05-18] MEDS: MELATONIN 5 MG TABLET 10 MG PO (21:04)
[2024-05-19] VITALS: BP 101/68; PULSE 71; RESP 16; TEMP 36.7; O2SAT 98
[2024-05-19] MEDS: MECLIZINE HCL 12.5 MG TABLET PO ×5 (01:05→21:18)
[2024-05-19] MEDS: guaiFENesin 600 MG/DEXTROMETHORPHAN 30 MG SR TAB 12 HR 1 TAB PO ×3 (01:05→21:18)
[2024-05-19] MEDS: FLUTICASONE PROPIONATE 0.05% NA SPR 16 GM BTL (*BKC) 2 SPRAY NASAL ×2 (01:05→08:21)
[2024-05-19] MEDS: LEVOTHYROXINE SODIUM 50 MCG TABLET PO (05:15)
--- NOTE | 2024-05-19 05:50 | PCRCNOTE ---
Pt stated that she does not use/need CPAP and doesn't own one.
[2024-05-19 06:14] VITALS: BP 114/76; PULSE 60; RESP 16; TEMP 36.6; O2SAT 98
[2024-05-19 06:27] LABS: Basophils Percent Auto 0.5 % (0.2-1.2); Eosinophils Absolute Auto 0.5 K/mm3 (0-0.3); Eosinophils Percent Auto 6.5 % (0-4.4); Hematocrit 35.8 % (37.0-47.0); Hemoglobin 11.9 g/dL (12.0-15.0); Immature Granulocyte Absolute 0.02 K/mm3 (0.00-0.031); Immature Granulocyte Percent A 0.2 % (0-0.5); Lymphocytes Absolute Auto 2.22 K/mm3 (0.9-3.2); Lymphocytes Percent Auto 26.9 % (18.3-44.2); Mean Corpuscular HGB Conc 33.2 g/dl (32-36); Mean Corpuscular Hemoglobin 32.3 pg (26-34); Mean Corpuscular Volume 97.3 fl (80-100); Mean Platelet Volume 9.8 fl (7.4-10.4); Monocytes Absolute Auto 0.7 K/mm3 (0.1-0.6); Monocytes Percent Auto 8.4 % (2.6-8.5); Neutrophils Absolute Auto 4.8 K/mm3 (1.3-6.7); Neutrophils Percent Auto 57.5 % (45.5-73.1); Platelet Count Result 286 k/mm3 (150-375); Red Blood Count 3.68 M/mm3 (4.2-5.4); Red Cell Distribution Width 14.1 % (11.5-14.5); White Blood Count 8.3 K/mm3 (4.5-10.0)
[2024-05-19 06:39] LABS: Alanine Aminotransferase 17 U/L (6-35); Albumin Level 3.5 g/dL (3.5-5.1); Alkaline Phosphatase 71 U/L (38-126); Anion Gap 5 mmol/L (4-12); Aspartate Amino Transferase 32 U/L (14-36); Bilirubin,Total 0.8 mg/dL (0.2-1.3); Blood Urea Nitrogen 23 mg/dL (7-17); Calcium 8.2 mg/dL (8.4-10.2); Carbon Dioxide 30 mmol/L (22-30); Chloride 102 mmol/L (98-107); Estimated CRCL calculation 31 ml/min; Estimated Glomerular Filt Rate 40; Glucose 88 mg/dL (65-110); Potassium 3.6 mmol/L (3.4-5.0); Sodium 137 mmol/L (137-145)
[2024-05-19 08:00] VITALS: BP 148/92; PULSE 67; RESP 16; TEMP 36.5; O2SAT 95
[2024-05-19] MEDS: PANTOPRAZOLE 40 MG TABLET PO ×2 (08:22→21:18)
[2024-05-19] MEDS: LORATADINE 10 MG TABLET PO (08:22)
[2024-05-19] MEDS: VENLAFAXINE HCL XR 75 MG CAP.ER.24H 150 MG PO (08:23)
--- NOTE | 2024-05-19 10:20 | P.PNIM_ITS ---
Progress Note: A&P Assessment and Plan (1) Dizziness: Code(s): R42 - Dizziness and giddiness Status: Acute Assessment and Plan: -- patient reported that she got up this morning and felt like the room was spinning with associated nausea and vomiting. She has history BPPV however has never been taught the Carmina maneuver and has not been taking anything for her BPPV. * PT ordered to teach Carmina maneuver * Meclizine 12.5 mg PO QID (2) Sinusitis, acute: Code(s): J01.90 - Acute sinusitis, unspecified Status: Acute Assessment and Plan: -- reports chronic sinusitis however she does not take any medication. She has had sinus surgeries in the past. * CT of the head and sinuses showed mild mucosal thickening in the paranasal sinuses, moderate nonspecific cerebral white matter disease likely representing chronic small-vessel ischemic disease * patient was started on Mucinex DM, Claritin, Flonase (3) Dehydration: Code(s): E86.0 - Dehydration Status: Acute Assessment and Plan: --Reported Nausea, vomiting, diarrhea with associated dizziness and hypotension likely secondary to suspected UTI. was hypotensive on arrival however after receiving 1 L normal saline blood pressure improved while in the ED. * Given 1 L normal saline while in the ED for hydration * CXR negative * Respiratory panel negative for influenza A and B, Covid, RSV * Lactic acid 2.5 initially now down to 0.9 after IV fluids (4) SELAM (acute kidney injury): Code(s): N17.9 - Acute kidney failure, unspecified Status: Acute Assessment and Plan: * likely secondary to dehydration * 05/19/24: BUN 23, Creatinine 1.30, and GFR 40. * 05/18/24: BUN 30, Creatinine 1.80, and GFR 28. * baseline creatinine appears to be 0.9, EGFR greater than 60 * avoid nephrotoxic medications * continue to hold lisinopril due to SELAM * continue to trend (5) Acute UTI: Code(s): N39.0 - Urinary tract infection, site not specified Status: Acute Assessment and Plan: --denies symptoms of a urinary tract infection including dysuria, urgency, frequency * UA showed cloudy urine appearance, trace ketone, 1+ leukocyte, 6-10 urine WBC, 1+ urine bacteria, greater than 20 urine cast * urine culture obtained and pending * patient was given a dose of Rocephin while in the ED, will hold off on any further antibiotics considering she is asymptomatic (6) Hypokalemia: Code(s): E87.6 - Hypokalemia Status: Acute Assessment and Plan: * potassium 3.6 now (7) Hyperlipidemia: Code(s): E78.5 - Hyperlipidemia, unspecified Status: Acute Assessment and Plan: * continue atorvastatin (8) Essential (primary) hypertension: Code(s): I10 - Essential (primary) hypertension Status: Acute Assessment and Plan: * patient was hypotensive on arrival requiring IV fluids for dehydration * will hold off on lisinopril and Coreg for now (9) Hypothyroidism: Qualifiers: Hypothyroidism type: unspecified Qualified Code(s): E03.9 - Hypothyroidism, unspecified Code(s): E03.9 - Hypothyroidism, unspecified Status: Acute Assessment and Plan: * continue Synthroid Subjective Date/time seen: 05/19/24 10:20 Interval history: Patient reports a headache that is a 3 , constant, and aching. Patient denies chest pain, palpitations, dizziness, nausea, or vomiting. Patient reports poor dentition and needing to get a new dentist, patient would like a regular diet. Review of Systems Review of Systems: All systems reviewed & are unremarkable except as noted in HPI and below Exam Const: General: no acute distress and uncomfortable Eyes: Sclera: sclerae normal Resp: Effort & Inspection: normal respiratory effort Auscultation: clear to auscultation bilaterally Cardio: Rate: regular rate Rhythm: regular rhythm GI: GI Palp: Yes Soft to palpation Auscultation: normal bowel sounds : Other: Voiding without difficulty. Skin: General skin exam: no rashes or lesions noted Neuro: Speech: normal speech Extrem: General: normal to inspection and no pedal edema Psych: Mental Status: mental status grossly normal Affect: normal affect Objective Data Vital Signs Vital Signs: Vital Signs - 24 hr 05/18/24 15:54 05/18/24 18:35 05/18/24 18:57 Temperature 97.5 F L Pulse Rate 66 79 104 H Respiratory Rate 14 20 14 Blood Pressure 122/93 H 121/90 106/63 Pulse Oximetry 97 100 93 Oxygen Delivery 05/18/24 19:27 05/18/24 19:35 05/19/24 00:00 Temperature 97.8 F 98.0 F Pulse Rate 67 71 Respiratory Rate 16 16 Blood Pressure 118/72 101/68 Pulse Oximetry 100 98 Oxygen Delivery Room Air 05/19/24 06:14 05/19/24 08:00 Temperature 97.8 F 97.7 F Pulse Rate 60 67 Respiratory Rate 16 16 Blood Pressure 114/76 148/92 H Pulse Oximetry 98 95 Oxygen Delivery Intake/Output Intake/Output: Intake & Output 05/16/24 05/17/24 05/18/24 05/19/24 23:59 23:59 23:59 23:59 Intake Total 1050 300 Balance 1050 300 Meds/Results Medications: Active Medications Generic Name Dose Route Start Last Admin Trade Name Freq PRN Reason Stop Dose Admin Acetaminophen 650 mg 05/18/24 18:17 Acetaminophen 325 Mg Tablet PO Q4H PRN Mild Pain (1-3) or Fever Atorvastatin Calcium 40 mg 05/18/24 21:00 05/18/24 21:03 Atorvastatin 40 Mg Tablet PO 40 mg HS DESTINY Administration Fluticasone Propionate 2 spray 05/18/24 21:45 05/19/24 08:21 Fluticasone Propionate 0.05% Na Spr 16 Gm Btl (*Bkc) NASAL 2 spray QAM DESTINY Administration Guaifenesin/Dextromethorphan 1 tab 05/18/24 21:45 05/19/24 08:22 Guaifenesin 600 Mg/Dextromethorphan 30 Mg Sr Tab 12 Hr PO 1 tab Q12HR DESTINY Administration Levothyroxine Sodium 50 mcg 05/19/24 06:30 05/19/24 05:15 Levothyroxine Sodium 50 Mcg Tablet PO 50 mcg DAILY@0630 DESTINY Administration Loratadine 10 mg 05/19/24 09:00 05/19/24 08:22 Loratadine 10 Mg Tablet PO 10 mg QAM DESTINY Administration Meclizine HCl 12.5 mg 05/18/24 21:45 05/19/24 08:22 Meclizine Hcl 12.5 Mg Tablet PO 12.5 mg QID DESTINY Administration Melatonin 10 mg 05/18/24 19:33 05/18/24 21:04 Melatonin 5 Mg Tablet PO 10 mg HS PRN Administration Insomnia Ondansetron HCl 4 mg 05/18/24 19:26 Ondansetron Inj 4 Mg/2 Ml Vial IV PUSH Q6H PRN Nausea And Vomiting Pantoprazole Sodium 40 mg 05/18/24 21:00 05/19/24 08:22 Pantoprazole 40 Mg Tablet PO 40 mg Q12HR DESTINY Administration Venlafaxine HCl 150 mg 05/19/24 09:00 05/19/24 08:23 Venlafaxine Hcl Xr 75 Mg Cap.Er.24h PO 150 mg DAILY DESTINY Administration Radiology Results: ITS Impressions Chest X-Ray 05/18/24 17:03 IMPRESSION: No active cardiopulmonary disease Labs Labs: Laboratory Results - last 24 hr 05/18/24 05/18/24 05/18/24 16:52 17:37 20:41 WBC 11.1 H RBC 4.02 L Hgb 12.9 Hct 38.7 MCV 96.3 MCH 32.1 MCHC 33.3 RDW 14.1 Plt Count 300 MPV 10.0 Immature Gran % (Auto) 0.4 Neut % (Auto) 69.3 Lymph % (Auto) 17.3 L [place] % (Auto) 8.2 Eos % (Auto) 4.3 Baso % (Auto) 0.5 Lymph # (Auto) 1.91 [place] # (Auto) 0.9 H Eos # (Auto) 0.5 H Baso # (Auto) 0.1 Abs Immat Gran (auto) 0.04 H Absolute Neuts (auto) 7.7 H Absolute Nucleated RBC 0.000 Nucleated RBC % 0.0 Sodium 137 Potassium 3.3 L Chloride 98 Carbon Dioxide 29 Anion Gap 10 BUN 30 H D Creatinine 1.80 H Estim Creat Clear Calc 20 Estimated GFR 28 L Glucose 130 H Lactic Acid 2.5 H 0.9 Calcium 8.4 Total Bilirubin 0.5 AST 30 ALT 19 Alkaline Phosphatase 70 Troponin I < 0.012 Total Protein 7.0 Albumin 3.8 Urine Color Dark yellow Urine Appearance Cloudy H Urine pH 5.5 Ur Specific [place] 1.021 Urine Protein Trace Urine Glucose (UA) Negative Urine Ketones Trace H Ur Blood (Man) Negative Urine Nitrate Negative Urine Bilirubin Negative Urine Urobilinogen 0.2 Add Ur Microanalysis Reviewed Leukocyte Esterase Rfl 1+ H Urine RBC 0-2 Urine WBC 6-10 H Ur Squamous Epith Cells Moderate Urine Bacteria 1+ H Urine Casts >20 Influenza A (RT-PCR) Negative Influenza B (RT-PCR) Negative RSV (RT-PCR) Negative SARS-CoV-2 RNA (RT-PCR) Negative 05/19/24 06:13 WBC 8.3 RBC 3.68 L Hgb 11.9 L Hct 35.8 L MCV 97.3 MCH 32.3 MCHC 33.2 RDW 14.1 Plt Count 286 MPV 9.8 Immature Gran % (Auto) 0.2 Neut % (Auto) 57.5 Lymph % (Auto) 26.9 [place] % (Auto) 8.4 Eos % (Auto) 6.5 H Baso % (Auto) 0.5 Lymph # (Auto) 2.22 [place] # (Auto) 0.7 H Eos # (Auto) 0.5 H Baso # (Auto) 0.0 Abs Immat Gran (auto) 0.02 Absolute Neuts (auto) 4.8 Absolute Nucleated RBC 0.000 Nucleated RBC % 0.0 Sodium 137 Potassium 3.6 Chloride 102 Carbon Dioxide 30 Anion Gap 5 BUN 23 H Creatinine 1.30 H Estim Creat Clear Calc 31 Estimated GFR 40 L Glucose 88 Lactic Acid Calcium 8.2 L Total Bilirubin 0.8 AST 32 ALT 17 Alkaline Phosphatase 71 Troponin I Total Protein 6.0 L Albumin 3.5 Urine Color Urine Appearance Urine pH Ur Specific [place] Urine Protein Urine Glucose (UA) Urine Ketones Ur Blood (Man) Urine Nitrate Urine Bilirubin Urine Urobilinogen Add Ur Microanalysis Leukocyte Esterase Rfl Urine RBC Urine WBC Ur Squamous Epith Cells Urine Bacteria Urine Casts Influenza A (RT-PCR) Influenza B (RT-PCR) RSV (RT-PCR) SARS-CoV-2 RNA (RT-PCR) Quality VTE Prophylaxis VTE prophylaxis: mechanical ordered
[2024-05-19 12:00] VITALS: BP 124/85; PULSE 79; RESP 17; TEMP 36.5; O2SAT 96
[2024-05-19 12:55] VITALS: BMI 18.3
[2024-05-19 16:00] VITALS: BP 128/82; PULSE 64; RESP 16; TEMP 36.4; O2SAT 96
[2024-05-19] MEDS: ATORVASTATIN 40 MG TABLET PO (21:18)
[2024-05-19] MEDS: MELATONIN 5 MG TABLET 10 MG PO (21:18)
[2024-05-19 21:20] VITALS: BP 146/97; PULSE 80; RESP 16; TEMP 36.6; O2SAT 97
[2024-05-20 00:13] VITALS: BP 134/81; PULSE 71; RESP 14; TEMP 36.7; O2SAT 99
[2024-05-20] MEDS: LEVOTHYROXINE SODIUM 50 MCG TABLET PO (05:20)
[2024-05-20 06:11] VITALS: BP 133/82; PULSE 64; RESP 16; TEMP 36.8; O2SAT 100
[2024-05-20 06:21] LABS: Basophils Percent Auto 0.6 % (0.2-1.2); Eosinophils Absolute Auto 0.5 K/mm3 (0-0.3); Eosinophils Percent Auto 6.5 % (0-4.4); Hematocrit 36.4 % (37.0-47.0); Hemoglobin 11.8 g/dL (12.0-15.0); Immature Granulocyte Absolute 0.01 K/mm3 (0.00-0.031); Immature Granulocyte Percent A 0.1 % (0-0.5); Lymphocytes Absolute Auto 2.21 K/mm3 (0.9-3.2); Lymphocytes Percent Auto 32.1 % (18.3-44.2); Mean Corpuscular HGB Conc 32.4 g/dl (32-36); Mean Corpuscular Hemoglobin 31.5 pg (26-34); Mean Corpuscular Volume 97.1 fl (80-100); Mean Platelet Volume 10.2 fl (7.4-10.4); Monocytes Absolute Auto 0.7 K/mm3 (0.1-0.6); Monocytes Percent Auto 10.2 % (2.6-8.5); Neutrophils Absolute Auto 3.5 K/mm3 (1.3-6.7); Neutrophils Percent Auto 50.5 % (45.5-73.1); Platelet Count Result 299 k/mm3 (150-375); Red Blood Count 3.75 M/mm3 (4.2-5.4); Red Cell Distribution Width 13.9 % (11.5-14.5); White Blood Count 6.9 K/mm3 (4.5-10.0)
[2024-05-20 06:41] LABS: Alanine Aminotransferase 16 U/L (6-35); Albumin Level 3.6 g/dL (3.5-5.1); Alkaline Phosphatase 68 U/L (38-126); Anion Gap 5 mmol/L (4-12); Aspartate Amino Transferase 27 U/L (14-36); Bilirubin,Total 0.7 mg/dL (0.2-1.3); Blood Urea Nitrogen 16 mg/dL (7-17); Calcium 8.6 mg/dL (8.4-10.2); Carbon Dioxide 29 mmol/L (22-30); Chloride 106 mmol/L (98-107); Estimated CRCL calculation 40 ml/min; Estimated Glomerular Filt Rate 55; Glucose 86 mg/dL (65-110); Potassium 3.3 mmol/L (3.4-5.0); Sodium 140 mmol/L (137-145)
[2024-05-20 08:00] VITALS: BP 149/86; PULSE 71; RESP 16; TEMP 36.7; O2SAT 98
[2024-05-20] MEDS: ACETAMINOPHEN 325 MG TABLET 650 MG PO (08:28)
[2024-05-20] MEDS: MECLIZINE HCL 12.5 MG TABLET PO ×2 (08:28→12:33)
[2024-05-20] MEDS: PANTOPRAZOLE 40 MG TABLET PO (08:28)
[2024-05-20] MEDS: guaiFENesin 600 MG/DEXTROMETHORPHAN 30 MG SR TAB 12 HR 1 TAB PO (08:29)
[2024-05-20] MEDS: FLUTICASONE PROPIONATE 0.05% NA SPR 16 GM BTL (*BKC) 2 SPRAY NASAL (08:29)
[2024-05-20] MEDS: LORATADINE 10 MG TABLET PO (08:29)
[2024-05-20] MEDS: POTASSIUM CHLORIDE 20 MEQ ER TABLET 40 MEQ PO (08:29)
[2024-05-20] MEDS: VENLAFAXINE HCL XR 75 MG CAP.ER.24H 150 MG PO (08:29)
--- NOTE | 2024-05-20 11:13 | PM.DS ---
DS: Admitting Diagnosis Discharge Date 05/20/2024 Admitting Diagnosis Dizziness and headache DS: Discharge Diagnosis Discharge Diagnosis (1) Dizziness: Code(s): R42 - Dizziness and giddiness Status: Acute (2) Sinusitis, acute: Code(s): J01.90 - Acute sinusitis, unspecified Status: Acute (3) Dehydration: Code(s): E86.0 - Dehydration Status: Resolved (4) SELAM (acute kidney injury): Code(s): N17.9 - Acute kidney failure, unspecified Status: Resolved (5) Hypokalemia: Code(s): E87.6 - Hypokalemia Status: Acute DS: Summary Hospital Course Hospital Course: This is a 69 year old female with a significant past medical history of recurrent ear infections, chronic sinusitis, BPPV, hypertension who presents to the hospital with complaints of lightheadedness which began yesterday and hypotension. Patient reports the following history of presenting illness. She States when she woke up this morning she felt like the room was spinning fast and her balance was off. she reports that with the dizziness she started having nausea and projectile vomiting. she reported that her left ear felt clogged but has had trouble with her ears for many many years. She also has chronic sinusitis and has had surgery on her sinuses in the past. She denies any sick contacts or recent illness. She does report postnasal drip, headaches that are related to her sinus issues, and dizziness. Patient denies Any fever, chills, diarrhea, abdominal pain, chest pain, shortness a breath. she has been diagnosed with BPPV in the past however denies being shown the Carmina maneuver and has not taken anything for her BPPV. She also reports that she has not taken anything for her chronic sinusitis. Work up in the hospital included chest x-ray was negative.Head/sinuses CT shown moderate nonspecific cerebral white matter disease, which likely represents chronic small vessel ischemic disease and mild mucosal thickening in the paranasal sinuses. Initial labs shown a WBC 11.1, K+ 3.3, Creatinine 1.80, eGFR 28, Lactic acid 2.5, troponin negative. UA shown cloudy urine appearance, trace ketones, 1+ leukocytes, 6-10 urine WBCs, 1+ urine bacteria, >20 urine casts. Respiratory panel negative for influenza A and B, RSV, COVID. Urine culture obtained and is pending. Patient was given 1L of NS while in the ER with improvement in her blood pressure. Lactic acid improved to 0.9. She was also given Zofran and Rocephin for suspected UTI. Urine culture came back negative. Physical therapy saw patient, patient was negative for BPPV per [place] [facility] [place] testing on both sides. Patient given ENT referral to see after discharge. Creatinine improved to 1.00. Patient given Potassium Chloride 40 meq PO x1 for potassium of 3.3. Time Spent with Patient Time attestation: Total time spent providing and/or coordinating discharge services: Time spent: Greater than 30 minutes Exam Const: General: no acute distress Eyes: Sclera: sclerae normal Resp: Effort & Inspection: normal respiratory effort Auscultation: clear to auscultation bilaterally Cardio: Rate: regular rate Rhythm: regular rhythm GI: GI Palp: Yes Soft to palpation Auscultation: normal bowel sounds : Other: Voiding without difficulty Skin: General skin exam: no rashes or lesions noted Neuro: Other: Normal speech. Extrem: General: normal to inspection and no pedal edema Psych: Mental Status: mental status grossly normal Affect: normal affect DS: Data Data Completed and Pending Labs on day of discharge: Labs from last 24 hours 05/20/24 06:00 WBC 6.9 RBC 3.75 L Hgb 11.8 L Hct 36.4 L MCV 97.1 MCH 31.5 MCHC 32.4 RDW 13.9 Plt Count 299 MPV 10.2 Immature Gran % (Auto) 0.1 Neut % (Auto) 50.5 Lymph % (Auto) 32.1 [place] % (Auto) 10.2 H Eos % (Auto) 6.5 H Baso % (Auto) 0.6 Lymph # (Auto) 2.21 [place] # (Auto) 0.7 H Eos # (Auto) 0.5 H Baso # (Auto) 0.0 Abs Immat Gran (auto) 0.01 Absolute Neuts (auto) 3.5 Absolute Nucleated RBC 0.000 Nucleated RBC % 0.0 Sodium 140 Potassium 3.3 L Chloride 106 Carbon Dioxide 29 Anion Gap 5 BUN 16 Creatinine 1.00 Estim Creat Clear Calc 40 Estimated GFR 55 L Glucose 86 Calcium 8.6 Total Bilirubin 0.7 AST 27 ALT 16 Alkaline Phosphatase 68 Total Protein 6.0 L Albumin 3.6 Discharge Plan Discharge Attending physician on discharge: Lizette Driscoll Discharging Clinician: Iris Tillman Anticipated Discharge Date/Time: 05/20/24 12:30 Patient Disposition: Home, Self-Care Activity: may shower Diet: regular Discharge Instructions: continue nose spray, important to use daily Drink Ensure daily. Patient Instructions: How to Stop Smoking (DC), Pain Management (DC), Dizziness (ED) Stand Alone Forms: General Discharge Information Follow-up/Referrals: Oren Hernandez M.D. [Physician] - 1 Week Kirill Corey DO [Primary Care Provider] - 1 Week Discharge Medications: New meclizine 12.5 mg Tablet 12.5 mg PO QID Qty: 60 0RF fluticasone propionate 50 mcg/actuation [place],Suspension 2 spray intranasal QAM Qty: 16 0RF loratadine 10 mg Tablet 10 mg PO QAM Qty: 30 0RF Continued atorvastatin 40 mg tablet 40 mg PO HS melatonin 10 mg PO HS PRN (Reason: Insomnia) pantoprazole 40 mg tablet,delayed release (DR/EC) 40 mg PO BID Qty: 180 3RF ibandronate 150 mg tablet 150 mg PO MONTHLY Qty: 3 3RF Rx Instructions: 01/22/24 carvedilol [Coreg] 25 mg tablet 25 mg PO Q12H Qty: 180 3RF venlafaxine 150 mg capsule,extended release 24hr 150 mg PO DAILY Qty: 30 5RF levothyroxine 50 mcg tablet 50 mcg PO DAILY Qty: 90 2RF lisinopril 40 mg tablet 40 mg PO DAILY Qty: 90 2RF vitamins-lipotropics Tablet 1 tablet PO DAILY Date of admission: 05/18/24 18:17 Primary Care Provider: Kirill Corey Admitting Provider: Noah Mckee Attending physician on admission: Noah Mckee Condition: Stable Hospitalist MIPS Heart Failure (Exclusion) Patient has history of Heart Transplant or Left Ventricular Assistive Device?: No IF YES, STOP HERE Heart Failure (Qualifier) Patient has current or prior documentation of LVEF less than or equal to 40%, or mod/servere depressed LVSF?: No IF NO, STOP HERE
== END 2024-05-20 12:55 | disposition home or self-care (01) ==
LOC: ANHED 16:31 → ANH2MED 18:32
PROVIDERS: Nurse Practitioner Acute Care; Admitting Provider Internal Medicine; Emergency Provider Preventive Medicine Aerospace Medicine; PCP Internal Medicine; Visit Provider Nurse Practitioner Family
DX: N17.9 Acute kidney failure, unspecified (principal); J01.90 Acute sinusitis, unspecified; N39.0 Urinary tract infection, site not specified; R42 Dizziness and giddiness; E86.0 Dehydration; E87.6 Hypokalemia; E78.5 Hyperlipidemia, unspecified; I10 Essential (primary) hypertension; E03.9 Hypothyroidism, unspecified; F17.210 Nicotine dependence, cigarettes, uncomplicated; F12.90 Cannabis use, unspecified, uncomplicated; Z20.822 Contact with and (suspected) exposure to COVID-19
CPT/HCPCS: 36415; 71046; 80053; 81001; 83605; 84484; 85025; 87086; 87637; 93005; 96374; 97161; 97530; 99285; A9270; G0378; J0696; J2405; J7030

== ENCOUNTER 2025-01-30 13:08 | Outpatient (CLI) | payer OTHER, SELFPAY ==
--- NOTE | ~2025-01-30 | DEXA_ITS ---
Bone Density Report Name: MELITA MARKS Age: 69 Sex: Female Ethnicity: White Date of : 1955 Indication: postmenopausal osteoporosis; monitoring treatment; height loss; prior fracture; Referring Provider: Kirill Corey Study: Bone densitometry was performed. Exam Date: January 30, 2025 Accession number: [id number] Bone Density: Region BMD T-score Z-score Classification AP Spine(L1, L3, L4) 1.012 -0.4 1.8 Normal Femoral Neck (Left) 0.548 -2.7 -0.9 Osteoporosis Total Hip (Left) 0.604 -2.8 -1.2 Osteoporosis World Health Organization criteria for BMD impression classify patients as: Normal (T-score at or above -1.0), Osteopenia (T-score between -1.0 and -2.5), or Osteoporosis (T-score at or below -2.5). 10-year Fracture Risk: FRAX not reported because: Some T-score for Spine Total or Hip Total or Femoral Neck at or below -2.5 Prior hip or vertebral fracture Treated for osteoporosis Previous Exams: -- Region Exam Age BMD T-score BMD Change BMD Change Date g/cm2 vs Baseline vs Previous -- AP Spine (L1,L3-L4) 01/30/2025 69 1.012 -0.4 6.1%* 6.1%* 04/06/2022 66 0.954 -0.9 Total Hip(Left) 01/30/2025 69 0.604 -2.8 -2.7% -2.7% 04/06/2022 66 0.621 -2.6 -- *Denotes significance at 95% confidence level, LSC for AP Spine = 0.022 g/cm2, LSC for Total Hip = 0.027 g/cm2 Clinical Information Provided by Patient: Have had a previous hip or vertebral fracture Has had a low trauma fracture Smokes Is being treated for osteoporosis Has used the following medications: Boniva (i.e. ibandronate) Patient maximum height was 71 Menopause Age: 46 No regular weight bearing exercise Does not regularly consume dairy products Drinks caffeinated beverages Onset of menses at age 9 Number of children 2 Impression: The patient has established osteoporosis, based on the Left Total Hip T-score and the existence of a prior fracture. The patient has risk factors, including: smoking, previous fracture. No significant bone loss was observed. Discussion: PATIENT UNDER TREATMENT WITH NO SIGNIFICANT BMD LOSS SINCE LAST EXAM. In an untreated patient, BMD typically declines with age. A lack of decline or gain is usually a sign that treatment is efficacious and fracture risk is reduced. It is important to ask patients whether they are taking their medications and to encourage continued and appropriate compliance with their osteoporosis therapies to reduce fracture risk. It is also important to review their risk factors and encourage appropriate calcium and vitamin D intakes, exercise, fall prevention and other lifestyle measures. Follow-Up: Consider a repeat BMD and Vertebral Fracture Assessment (VFA) exam in 2 years or sooner if medically necessary, to reassess this patient's status. Reported by: LETI on 01/30/2025 1:35:00 PM. Reviewed, dictated and finalized at location A.
== END 2025-01-30 13:09 | disposition home or self-care (01) ==
LOC: MICIMG 13:09
PROVIDERS: PCP Internal Medicine; Visit Provider Internal Medicine
DX: M81.0 Age-related osteoporosis without current pathological fracture (principal)
CPT/HCPCS: 77080